=== PATIENT | male | born 1970 | race Caucasian/White ===

== ENCOUNTER 2016-06-03 08:26 | Outpatient (CLI) ==
[2016-06-03 08:56] LABS: ALBUMIN 3.3 g/dL (3.4-5.0); ALBUMIN/GLOBULIN RATIO 1.1; BILIRUBIN,TOTAL 0.61 mg/dL (0.00-1.20); BUN/CREATININE RATIO 11.71; CALCIUM 9.3 mg/dL (8.2-10.2); CREATININE 1.11 mg/dL (0.60-1.10); TOTAL PROTEIN 6.3 g/dL (6.4-8.2)
== END 2016-06-03 08:27 | disposition home or self-care (01) ==
LOC: LAB 08:26
PROVIDERS: ATTEND Emergency Medicine
DX: E11.9 Type 2 diabetes mellitus without complications (principal)
CPT/HCPCS: 36415; 80053; 80061; 83036

== ENCOUNTER 2016-08-26 09:02 | Outpatient (CLI) ==
[2016-08-26 09:22] LABS: BASOPHILS # (AUTO) 0.1 K/uL (0-0.2); BASOPHILS % (AUTO) 0.8 % (0.0-3.0); EOSINOPHILS # (AUTO) 0.2 K/ul (0.0-0.7); EOSINOPHILS % (AUTO) 3.1 % (0.0-7.0); HEMATOCRIT 43.9 % (42.0-52.0); HEMOGLOBIN 15.5 g/dl (14.0-18.0); IMMATURE GRANULOCYTE % (AUTO) 0.2 % (0.0-5.0); LYMPHOCYTES # (AUTO) 2.1 K/uL (0.60-3.4); LYMPHOCYTES % (AUTO) 31.5 (10.0-50.0); MEAN CORPUSCULAR HEMOGLOBIN 29.3 pg (27.0-31.0); MEAN CORPUSCULAR HGB CONC 35.3 (31.8-35.4); MONOCYTES # (AUTO) 0.7 K/uL (0.4-2.0); MONOCYTES % (AUTO) 10.1 (0-10); NEUTROPHILS # (AUTO) 3.6 K/ul (2.0-6.9); NEUTROPHILS % (AUTO) 54.3; PLATELET COUNT 196 10^3/uL (140-440); RED BLOOD COUNT 5.29 10^6/ul (4.70-6.10); WHITE BLOOD COUNT 6.53 K/ul (4.2-10.2)
[2016-08-26 09:59] LABS: ALBUMIN 3.6 g/dL (3.4-5.0); ALBUMIN/GLOBULIN RATIO 1.2; BILIRUBIN,TOTAL 0.79 mg/dL (0.00-1.20); BUN/CREATININE RATIO 14.15; CALCIUM 9.2 mg/dL (8.2-10.2); CHOL/HDL RATIO 5.3 (4.5-6.4); CREATININE 1.06 mg/dL (0.60-1.10); TOTAL PROTEIN 6.6 g/dL (6.4-8.2)
== END 2016-08-26 09:03 | disposition home or self-care (01) ==
LOC: LAB 09:02
PROVIDERS: ATTEND Emergency Medicine
DX: E78.5 Hyperlipidemia, unspecified (principal); I10 Essential (primary) hypertension; E88.81 Metabolic syndrome and other insulin resistance; E11.9 Type 2 diabetes mellitus without complications
CPT/HCPCS: 36415; 80053; 80061; 83036; 84443; 85025

== ENCOUNTER 2016-12-02 08:08 | Outpatient (CLI) ==
[2016-12-02 08:41] LABS: BASOPHILS # (AUTO) 0.1 K/uL (0-0.2); BASOPHILS % (AUTO) 0.8 % (0.0-3.0); EOSINOPHILS # (AUTO) 0.3 K/ul (0.0-0.7); EOSINOPHILS % (AUTO) 4.3 % (0.0-7.0); HEMATOCRIT 45.6 % (42.0-52.0); HEMOGLOBIN 16.1 g/dl (14.0-18.0); IMMATURE GRANULOCYTE % (AUTO) 0.5 % (0.0-5.0); LYMPHOCYTES # (AUTO) 2.5 K/uL (0.60-3.4); LYMPHOCYTES % (AUTO) 31.8 (10.0-50.0); MEAN CORPUSCULAR HGB CONC 35.3 (31.8-35.4); MONOCYTES # (AUTO) 0.6 K/uL (0.4-2.0); MONOCYTES % (AUTO) 7.2 (0-10); NEUTROPHILS # (AUTO) 4.3 K/ul (2.0-6.9); NEUTROPHILS % (AUTO) 55.4; PLATELET COUNT 208 10^3/uL (140-440); RED BLOOD COUNT 5.56 10^6/ul (4.70-6.10); WHITE BLOOD COUNT 7.83 K/ul (4.2-10.2)
[2016-12-02 09:18] LABS: ALBUMIN 3.5 g/dL (3.4-5.0); ANION GAP 15.7; BILIRUBIN,TOTAL 0.64 mg/dL (0.00-1.20); BUN/CREATININE RATIO 19.23; CALCIUM 9.2 mg/dL (8.2-10.2); CHOL/HDL RATIO 6.7 (4.5-6.4); CREATININE 1.04 mg/dL (0.60-1.10); POTASSIUM 3.7 mmol/L (3.5-5.1)
== END 2016-12-02 08:09 | disposition home or self-care (01) ==
LOC: LAB 08:08
PROVIDERS: ATTEND Emergency Medicine
DX: E88.81 Metabolic syndrome and other insulin resistance (principal); I10 Essential (primary) hypertension; E78.5 Hyperlipidemia, unspecified
CPT/HCPCS: 36415; 80053; 80061; 83036; 84443; 85025

== ENCOUNTER 2017-07-06 09:25 | Outpatient (CLI) | END 2017-07-06 09:26 | disposition home or self-care (01) | LOC: LAB 09:25 | PROVIDERS: ATTEND Emergency Medicine | DX: E78.5 Hyperlipidemia, unspecified (principal); I10 Essential (primary) hypertension; E88.81 Metabolic syndrome and other insulin resistance; E11.9 Type 2 diabetes mellitus without complications; E66.9 Obesity, unspecified | CPT/HCPCS: 36415; 80053; 80061; 83036; 84443; 85025 ==

== ENCOUNTER 2017-10-02 14:16 | Outpatient (CLI) | END 2017-10-02 14:17 | disposition home or self-care (01) | LOC: LAB 14:16 | PROVIDERS: ATTEND Emergency Medicine | DX: E11.9 Type 2 diabetes mellitus without complications (principal); E78.5 Hyperlipidemia, unspecified; I10 Essential (primary) hypertension; Z12.5 Encounter for screening for malignant neoplasm of prostate | CPT/HCPCS: 36415; 80053; 80061; 83036; 84443; 85025 ==

== ENCOUNTER 2017-12-03 13:45 | Outpatient (CLI) | END 2017-12-03 13:46 | disposition home or self-care (01) | LOC: LAB 13:45 | PROVIDERS: ATTEND Emergency Medicine | DX: E11.9 Type 2 diabetes mellitus without complications (principal); E78.5 Hyperlipidemia, unspecified; I10 Essential (primary) hypertension | CPT/HCPCS: 36415; 80053; 80061; 83036; 84443; 85025 ==

== ENCOUNTER 2018-03-09 12:11 | Outpatient (CLI) | END 2018-03-09 12:12 | disposition home or self-care (01) | LOC: LAB 12:11 | PROVIDERS: ATTEND Nurse Practitioner Family | DX: E11.9 Type 2 diabetes mellitus without complications (principal); I10 Essential (primary) hypertension; E78.5 Hyperlipidemia, unspecified | CPT/HCPCS: 36415; 80053; 80061; 83036 ==

== ENCOUNTER 2018-06-18 10:30 | Outpatient (CLI) | payer MEDICAID, OTHER | END 2018-06-18 10:31 | disposition home or self-care (01) | LOC: LAB 10:30 | PROVIDERS: ATTEND Nurse Practitioner Family | DX: E11.9 Type 2 diabetes mellitus without complications (principal); E78.5 Hyperlipidemia, unspecified | CPT/HCPCS: 36415; 80053; 80061; 83036 ==

== ENCOUNTER 2018-08-16 09:07 | Outpatient (CLI) | END 2018-08-16 09:08 | disposition home or self-care (01) | LOC: LAB 09:07 | PROVIDERS: ATTEND Nurse Practitioner Family | DX: E11.9 Type 2 diabetes mellitus without complications (principal); I10 Essential (primary) hypertension; E78.5 Hyperlipidemia, unspecified | CPT/HCPCS: 36415; 80053; 80061; 83036 ==

== ENCOUNTER 2018-09-15 14:05 | Outpatient (CLI) | END 2018-09-15 14:06 | disposition home or self-care (01) | LOC: LAB 14:05 | PROVIDERS: ATTEND Nurse Practitioner Family | DX: E11.9 Type 2 diabetes mellitus without complications (principal); E78.5 Hyperlipidemia, unspecified | CPT/HCPCS: 36415; 80053; 80061; 82043 ==

== ENCOUNTER 2018-09-16 10:19 | Outpatient (CLI) | END 2018-09-16 10:20 | disposition home or self-care (01) | LOC: RHC-LAB 10:19 | PROVIDERS: ATTEND Nurse Practitioner Family | DX: E11.9 Type 2 diabetes mellitus without complications (principal) ==

== ENCOUNTER 2019-01-14 10:21 | Outpatient (CLI) | END 2019-01-14 10:22 | disposition home or self-care (01) | LOC: LAB 10:21 | PROVIDERS: ATTEND Nurse Anesthetist, Certified Registered | DX: Z01.812 Encounter for preprocedural laboratory examination (principal) | CPT/HCPCS: 36415; 80053; 82248; 93005; 93010 ==

== ENCOUNTER 2020-04-04 10:45 | Observation (INO) ==
[2020-04-04] MEDS ORDERED: TRANDATE IVP STA ×2 (11:09→13:41)
--- NOTE | 2020-04-04 11:15 | ED.PDOC ---
General ED Provider: Dr. ZIA CHOWDHURY Chief Complaint: Hypertension Stated Complaint: Patient is a 49 year old male who has a history of hypertension and DM who comes to the ER with elevated blood pressure that was found while in his follow up appointment in the clinic. He states that he has been taking his medications for blood pressure. Denies any chest pain or headache. Time Seen by Physician: 11:00 Mode of Arrival: Walk-In Information Source: Patient Primary Care Provider: ODIN LONGORIA APRN, FNP-BC Nursing and Triage Documentation Reviewed and Agree: Yes Does patient meet sepsis criteria?: No System Inflammatory Response Syndrome: Not Applicable Sepsis Protocol: For patient's 13 years and over: Temp is 96.8 and below OR 101 and greater Pulse >90 BPM Resp >20/minute Acutely Altered Mental Status Are patient's symptoms suggestive of a new infection, such as: -Pneumonia -Skin, Soft Tissue -Endocarditis -UTI -Bone, Joint Infection -Implantable Device -Acute Abdominal Infection -Wound Infection -Meningitis -Blood Stream Catheter Infection -Unknown Review of Systems Review Of Systems Constitutional: Reports No symptoms Eyes: Reports No symptoms Ears, Nose, Mouth, Throat: Reports No symptoms Respiratory: Reports No symptoms Cardiac: Reports No symptoms GI: Reports No symptoms : Reports No symptoms Musculoskeletal: Reports No symptoms Skin: Reports No symptoms Neurological: Reports Anxiety Endocrine: Reports No symptoms Hematologic/Lymphatic: Reports No symptoms All Other Systems: Reviewed and Negative [facility] Medical History (Updated 04/04/20 @ 19:13 by ZIA CHOWDHURY MD) Anxiety and depression Callus of foot Carpal tunnel syndrome, left upper limb Diabetes mellitus Dyslipidemia Encounter for diabetic foot exam Feeling stressed out Homeless single person Hypertension Irritable mood Obesity Panic disorder Sleep apnea Uncontrolled hypertension Uncontrolled hypertension Family History Mother Cerebrovascular accident Hypertension FATHER Leukemia AUNT Multiple sclerosis MATERNAL GRANDMOTHER Cancer Other Chronic mental illness Social History Smoking and tobacco status: Never smoker Adopted: No Caregiver/support person: No Foster care: No Household members: children Housing: house Lives independently: Yes Current occupational status: unemployed Current occupational exposures/hazards: No Sexually active: Yes Do you think of yourself as: straight/heterosexual Current gender identity: male Seatbelt use: always Helmet use: No Drives intoxicated or rides with intoxicated auto crane driver: No Water heater temperature set < 120 degrees: Yes Working smoke detector in home: Yes Fire extinguisher in home: Yes Carbon monoxide detector in home: Yes Firearms in home: No Surgical History (Updated 05/22/19 @ 14:52 by [employer] [place]) Craniotomy (06/21/12) Physical Exam Physical Exam Appearance: Reports Obese Ill-appearing: None Pain Distress: None Eyes: Reports Conjunctiva clear Respiratory: Reports Airway patent, Breath sounds clear, Breath sounds equal and Respirations nonlabored Cardiovascular: Reports RRR, Pulses normal, No rub and No murmur Musculoskeletal: Reports Normal strength, ROM intact, No edema and No calf tenderness Skin: Reports Warm, Dry and Normal color Neurological: Reports Motor intact, Cranial nerves intact, Alert and Oriented Psychiatric: Reports Anxious Interpretation Radiology Interpretation Radiology Interpretation By: Radiologist Radiology Results: No acute changes Exam Interpreted: CT Scan (Head ) EKG Interpretation Time of EKG #1: 17:36 Rate: Normal Rhythm: Sinus Ectopy: None [place]: NL ST Segment: Normal Interpretation: Sinus with first degree av block Re-Evaluation Re-Evaluation Time of Re-Evaluation: 19:15 Status: Improved Vital Signs Stable: Yes (Blood pressure 203/93) Physician Notification Case Discussed Physician Notified: Dr bailey. Time of Notification: 19:12 (ok to admit ) Critical Care Note Critical Care Note Total Critical Care Time (mins): 55 Course Course Hematology/Chemistry: 04/04/20 17:32 04/04/20 17:32 Orders, Labs, Meds: Lab Review 04/04/20 04/04/20 04/04/20 17:32 17:32 17:35 WBC 10.05 RBC 4.76 Hgb 14.3 Hct 40.0 L MCV 84.0 MCH 30.0 MCHC 35.8 H RDW Coeff of Alan 14.2 Plt Count 195 Immature Gran % (Auto) 0.4 Neut % (Auto) 74.9 Lymph % (Auto) 15.4 [place] % (Auto) 6.7 Eos % (Auto) 2.1 Baso % (Auto) 0.5 Neut # (Auto) 7.5 H Lymph # (Auto) 1.6 [place] # (Auto) 0.7 Eos # (Auto) 0.2 Baso # (Auto) 0.1 Immature Gran # (Auto) 0.0 Sodium 136.6 Potassium 3.87 Chloride 100.0 Carbon Dioxide 27.4 Anion Gap 13.07 BUN 13.2 Creatinine 1.25 H Estimated GFR (MDRD) 61.00 BUN/Creatinine Ratio 10.56 Glucose 234.0 H Calcium 9.69 Total Bilirubin 0.87 AST 32.8 ALT 14.9 Alkaline Phosphatase 89.7 NT-Pro-B Natriuret Pep 783.000 H Total Protein 7.59 Albumin 4.31 Globulin 3.28 Albumin/Globulin Ratio 1.31 TSH Free T4 Urine Opiates Screen Positive H Ur Oxycodone Screen Negative Urine Methadone Screen Negative Ur Propoxyphene Screen Negative Ur Barbiturates Screen Negative U Tricyclic Antidepress Negative Ur Phencyclidine Scrn Negative Ur Amphetamine Screen Negative U Methamphetamines Scrn Negative U Benzodiazepines Scrn Negative Urine Cocaine Screen Negative U Cannabinoids Screen Negative 04/04/20 04/04/20 17:50 17:50 WBC RBC Hgb Hct MCV MCH MCHC RDW Coeff of Alan Plt Count Immature Gran % (Auto) Neut % (Auto) Lymph % (Auto) [place] % (Auto) Eos % (Auto) Baso % (Auto) Neut # (Auto) Lymph # (Auto) [place] # (Auto) Eos # (Auto) Baso # (Auto) Immature Gran # (Auto) Sodium Potassium Chloride Carbon Dioxide Anion Gap BUN Creatinine Estimated GFR (MDRD) BUN/Creatinine Ratio Glucose Calcium Total Bilirubin AST ALT Alkaline Phosphatase NT-Pro-B Natriuret Pep Total Protein Albumin Globulin Albumin/Globulin Ratio TSH 1.280 Free T4 1.48 Urine Opiates Screen Ur Oxycodone Screen Urine Methadone Screen Ur Propoxyphene Screen Ur Barbiturates Screen U Tricyclic Antidepress Ur Phencyclidine Scrn Ur Amphetamine Screen U Methamphetamines Scrn U Benzodiazepines Scrn Urine Cocaine Screen U Cannabinoids Screen Orders Category Date Time Status EKG-(ED ONLY) Stat CARDIO 04/04/20 17:27 Completed ED IV/MEDIPORT/POWERPORT .ONCE EMERGENCY 04/04/20 11:09 Active CBC W/ AUTO DIFF Stat LAB 04/04/20 17:32 Completed COMPREHENSIVE METABOLIC PANEL Stat LAB 04/04/20 17:32 Completed CORTISOL,RANDOM Stat LAB 04/04/20 18:20 Received DRUG SCREEN, URINE, RAPID Stat LAB 04/04/20 17:35 Completed FREE T4 (FREE THYROXINE) Stat LAB 04/04/20 17:50 Completed METANEPHRINES, FRAC PL, FREE Stat LAB 04/04/20 18:20 Received NT-PROBNP Stat LAB 04/04/20 17:32 Completed THYROID STIMULATING HORMONE Stat LAB 04/04/20 17:50 Completed 0.9 % Sodium Chloride [Saline Flush] MEDS 04/04/20 11:09 Active 1 syr IVF PRN PRN Clonidine HCl [Catapres] MEDS 04/04/20 17:33 Discontinued 0.1 mg PO ONCE STA Enalaprilat Dihydrate [Vasotec IV] MEDS 04/04/20 12:27 Discontinued 1.25 mg IVP ONCE STA Hydralazine HCl MEDS 04/04/20 14:57 Discontinued 10 mg IVP ONCE STA Labetalol HCl [Trandate] MEDS 04/04/20 13:41 Discontinued 10 mg IVP ONCE STA Labetalol HCl [Trandate] MEDS 04/04/20 11:09 Discontinued 20 mg IVP ONCE STA Lorazepam Inj [Ativan] MEDS 04/04/20 15:04 Discontinued 1 mg IVP ONCE STA Nicardipine in NaCl, Iso-Osm [Cardene 20 mg/200 ml NaCl MEDS 04/04/20 16:30 Active ] 20 mg in [address] HEAD W/O CONTRAST Stat RADS 04/04/20 17:32 Completed Medications Generic Name Dose Route Start Last Admin Trade Name Freq PRN Reason Stop Dose Admin Nicardipine/Sodium Chloride 20 mg in 200 mls @ 50 mls/hr 04/04/20 16:30 04/04/20 17:53 Cardene 20 Mg/200 Ml Nacl IV 0 mg/hr TITRATE MARY ANN 0 mls/hr Titration Protocol 5 MG/HR Sodium Chloride 1 syr 04/04/20 11:09 0.9% Sodium Chloride 10 Ml Disp.Syrin IVF PRN PRN To flush IV Discontinued Medications Generic Name Dose Route Start Last Admin Trade Name Freq PRN Reason Stop Dose Admin Clonidine 0.1 mg 04/04/20 17:33 04/04/20 17:57 Clonidine Hcl 0.1 Mg Tablet PO 04/04/20 17:34 0.1 mg ONCE STA Administration Enalaprilat 1.25 mg 04/04/20 12:27 04/04/20 12:44 Enalaprilat Dihydrate 1.25 Mg/Ml Vial IVP 04/04/20 12:28 1.25 mg ONCE STA Administration Hydralazine HCl 10 mg 04/04/20 14:57 04/04/20 15:19 Hydralazine Hcl 20 Mg/Ml Sdv IVP 04/04/20 14:58 10 mg ONCE STA Administration Labetalol HCl 20 mg 04/04/20 11:09 04/04/20 11:17 Labetalol Hcl 100 Mg/20 Ml Mdv IVP 04/04/20 11:10 20 mg ONCE STA Administration Labetalol HCl 10 mg 04/04/20 13:41 04/04/20 13:57 Labetalol Hcl 100 Mg/20 Ml Mdv IVP 04/04/20 13:42 10 mg ONCE STA Administration Lorazepam 1 mg 04/04/20 15:04 04/04/20 15:25 Lorazepam Inj 2 Mg/Ml Disp.Syringe IVP 04/04/20 15:05 1 mg ONCE STA Administration Vital Signs: Temp Pulse Resp BP Pulse Ox 04/04/20 16:11 218/106 H 04/04/20 14:23 186/94 H 04/04/20 14:22 175/96 H 04/04/20 13:52 186/88 H 04/04/20 13:32 182/94 H 04/04/20 13:19 187/95 H 04/04/20 13:07 188/94 H 04/04/20 12:47 209/99 H 04/04/20 12:43 190/102 H 04/04/20 12:17 199/96 H 04/04/20 12:03 200/98 H 04/04/20 11:47 201/99 H 04/04/20 11:35 223/111 H 04/04/20 11:22 227/108 H 04/04/20 11:13 255/119 H 04/04/20 11:00 240/130 H 04/04/20 10:46 97.5 F L 74 18 239/122 H 98 Discharge Plan Discharge Patient Disposition: PLACED OBSERVATION Discharge Problem: Hypertensive urgency Hypertension Qualifiers: Hypertension type: essential hypertension Qualified Code(s): I10 - Essential (primary) hypertension ED Provider: ZIA CHOWDHURY Condition: Fair Physician Progress Note: []
[2020-04-04] MEDS ORDERED: VASOTEC IV IVP STA (12:27)
[2020-04-04] MEDS ORDERED: HYDRALAZINE HCL IVP STA (14:57)
[2020-04-04] MEDS ORDERED: ATIVAN IVP STA (15:04)
[2020-04-04] MEDS ORDERED: CARDENE 20 MG/200 ML NACL 20 MG/200 ML BAG IV SCH (16:30)
[2020-04-04] MEDS ORDERED: CATAPRES PO STA (17:33)
[2020-04-04 17:39] LABS: BASOPHILS # (AUTO) 0.1 K/uL (0-0.2); BASOPHILS % (AUTO) 0.5 % (0.0-3.0); EOSINOPHILS # (AUTO) 0.2 K/ul (0.0-0.7); EOSINOPHILS % (AUTO) 2.1 % (0.0-7.0); HEMOGLOBIN 14.3 g/dl (14.0-18.0); IMMATURE GRANULOCYTE % (AUTO) 0.4 % (0.0-5.0); LYMPHOCYTES # (AUTO) 1.6 K/uL (0.60-3.4); LYMPHOCYTES % (AUTO) 15.4 (10.0-50.0); MEAN CORPUSCULAR HGB CONC 35.8 (31.8-35.4); MONOCYTES # (AUTO) 0.7 K/uL (0.4-2.0); MONOCYTES % (AUTO) 6.7 (0-10); NEUTROPHILS # (AUTO) 7.5 K/ul (2.0-6.9); NEUTROPHILS % (AUTO) 74.9 % (42.2-75.2); PLATELET COUNT 195 10^3/uL (140-440); RDW COEFFICIENT OF VARIATION 14.2 % (11.6-14.8); RED BLOOD COUNT 4.76 10^6/ul (4.70-6.10); WHITE BLOOD COUNT 10.05 K/ul (4.2-10.2)
[2020-04-04 17:51] LABS: ALANINE AMINOTRANSFERASE 14.9 U/L (0-50); ALBUMIN 4.31 g/dL (3.5-5.0); ALKALINE PHOSPHATASE 89.7 U/L (38-126); ASPARTATE AMINO TRANSFERASE 32.8 U/L (17-59); BILIRUBIN,TOTAL 0.87 mg/dL (0.2-1.3); BLOOD UREA NITROGEN 13.2 mg/dL (9-20); CALCIUM 9.69 mg/dL (8.4-10.2); CARBON DIOXIDE 27.4 mmol/L (22-30.0); CREATININE 1.25 mg/dL (0.60-1.10); POTASSIUM 3.87 mmol/L (3.5-5.1); SODIUM 136.6 mmol/L (134.5-145); TOTAL PROTEIN 7.59 g/dL (6.3-8.2)
[2020-04-04 18:05] LABS: OPIATE SCREEN,URINE POSITIVE (NEGATIVE)
[2020-04-04 18:06] LABS: AMPHETAMINE SCREEN,URINE NEGATIVE (NEGATIVE); BARBITURATE SCREEN,URINE NEGATIVE (NEGATIVE); BENZODIAZEPINES SCREEN,URINE NEGATIVE (NEGATIVE); CANNABINOID SCREEN,URINE NEGATIVE (NEGATIVE); COCAIN SCREEN,URINE NEGATIVE (NEGATIVE); METHADONE URINE SCREEN NEGATIVE (NEGATIVE); METHAMPHETAMINES SCREEN,URINE NEGATIVE (NEGATIVE); OXYCODONE URINE SCREEN NEGATIVE (NEGATIVE); PHENCYCLIDINE SCREEN,URINE NEGATIVE (NEGATIVE); PROPOXYPHENE URINE SCREEN NEGATIVE (NEGATIVE); TRICYCLIC ANTIDEPRESSANTS URIN NEGATIVE (NEGATIVE)
--- NOTE | 2020-04-04 18:16 | CT ---
EXAM: CT Head HISTORY: Headache COMPARISON: 06/16/2012 TECHNIQUE: CT head performed without contrast FINDINGS: There is no mass effect, midline shift, or intracranial hemmorhage. Carver white differenti ation is preserved. There is no extra-axial collection. Old right frontal lobe coronal radiata and centrum semiovale infarcts with encephalomalacia are involved since 06/16/2012. Patchy periventricul ar and subcortical white matter hypodensities. Mild generalized cerebral atrophy. The ventricles and sulci are unremarkable. The basal cisterns are patent. There is no depressed calvarial fracture. T he mastoid air cells are clear. The visualized paranasal sinuses are clear. IMPRESSION: 1. No acute intracranial abnormality. 2. 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 3. Mild chronic small vessel ischemic changes and atrophy.
[2020-04-04] MEDS ORDERED: ZOFRAN 4 MG/2 ML IVP PRN (19:15)
[2020-04-04] MEDS ORDERED: TYLENOL PO PRN (19:15)
[2020-04-04 20:44] VITALS: BMI 36.5
--- NOTE | 2020-04-04 20:49 | PCM ---
Chief Complaint Chief Complaint: My Blood pressure is elevated, the clinic sent me to the emergency room. HTN Urgency History of Present Illness History of Present Illness: 49 yo CM patient of ADRIAN Sierra presented to ED today after visit was scheduled with [facility] Rodriguez. [facility], bu tappt was cancelled at 10:12. Per patient, he was directed to the ED due markedly elevated BP. At 1730 today, Dr. Harris from ED called me to let me know that the patient BP was markedly elevated. While on the phone, I checked his last OV from 01/04/20 DM f/u, BG noted 160-200, 3 week previously met with cardiology w/ med changes and had apt 1 week in the future. I did not find scanned documents from the cardiology evaluation. Homeless, living out of the truck. Last A1C 11.10, poor diet, living in vehicle, uncontrolled HTN: recommended salt reduction. Labs were ordered. Labs from 04/02/20 WBC 7.53, hgb 14.1, plt 228. CMP 138.5 sodium, k+ 3.83, cr 1.29, glucose 158.3, a1c 9.34. Trigly 294.1, chol 204.7, ldl 114. AST/ALT normal at 21.9 and 14.6. Stress echo 04/01/[address] Glaser. I was called by ED 1739 04/04/20 and informed patient was in ED with high blood pressure. I talked to Steven. Patient arrived in ED around 11. They noted chronic history of HTN and DM found while in f/u apt in clinic. Had been taking BP meds. No Chest pain, no PACKER. BP from 10:46 through present included 239/122, 240/130, 255/119, 227/108, 223/111, 201/99, 200/98 199/96, 190/102, 209/99, 188/94, 187/95, 182/94, 186/88, 175/96, 186/94 and then 218/106. Afebrile, Pulse 74, rr 18. I reviewed medications from the last note from ADRIAN sierra and med list is not clear. It appears he is on Lovastatin 40mg daily, Lisinopril 40mg daily, hydroxyzine 25mg up to QID, Clonidine patch 0.3/24 hour, metoprolol tartrate 100 daily, norco 10 TID, HCTZ 25, basaglar 64 untis, lispro 20 units TID. Is on chlorthalidone 50mg daily. He should not be on #2 thiazides. I reviewed the note from podiatry from 02/16/20 papoes and peripheral neuropathy. It appears in the ED he got lorazepam 1mg, labetaol 20mg IVP at 1109, then 10mg at 1341. He got enalaprilat 1.25mg 1227, hydralazine 10mg at 1457. Then clonidine 0.1mg at 1733 at my direction as I was concerned that the patient was having rebound HTN due to missing his clonidine patch. As of the discussion with me at 1738, no labs had been done on patient today. I requested CBC/CMP/Utox at a minimum. No eye c/o no vision changes, no PACKER, no Chest pain, no urinary changes, no MSK changes. He presented with HTN urgency without obvious emergency/end organ symptoms. I discussed with ED provider that labs for today would be a good idea. I would like to know the creatinine today to evaluate kidney function. ER provider noted that he was given hydralazine, labetalol, these did not help. He was added on nicardipine drip and BP had dropped some. I noted concern for stimulation of the sympathetic nervous system and for rebound HTN due to lack of clonidine. He has not had any renal imaging in our system, I do not have the recent cardiology recommendations. He is not on aldosterone antagonist. Based on presentation, I am concerned that the patient has not been compliant with his clonidine. I would like to give him 0.2mg clonidine BID, would like to start Norvasc 10mg daily, continue chlorthalidone 50mg, Lisinopril 40mg. Would like to get Renal artery US and kidney US tomorrow. I need to get cardiology documentation. I noted to Dr. Harris that I needed additional information about this patient before agreeing to admit as no workup had been done other than meds for his high BP. Received call back at 1905 after request for additional information and I agreed to admit to observation. CBC showed wbc 10.05, hgb 14.3, plt 195. CMP Cr stable at 1.25, GFR 61 suggesting stage 2 disease. K+ is stable at 3.87 and sodium 136.6. BUN stable 13.2. Glucose 234.0. A1C done 04/02 was 9.34. BNP was 783. TSH normal 1.280, Free T4 1.48. microalbumin was 211 on 10/05/19. Utox was + for opiates. 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 Mild chornic small vessel ischemic changes. Called nursing and his BP was 205/100 right and 220/120 on left as of 21:20. Reviewed care with Carl woods. The patient is by definition resistant HTN as he is on multiple meds (>3) with persistent HTN. Some patients have refractory HTN (>5 meds with chlorhtalidone and aldactone) under care of HTN specialist. No proximal muscle weakness, purple striae, cushingoid features, large hands/feet, virilization, frontal bossing (e/o GH or Cortisol). Initial w/u needs to include electrolytes, UA, calcium, tsh, plasma jacob and plasma renin activity, plasma fractionated metanephrines. I had DR. Harris order most of this while in the ED. I have added renin activity, aldosterone. Metanephrines, urine microalb/creatinine ratio. US kidneys in am and am and doppler in am. CXR in am. REVIEW OF SYMPTOMS: (Positives bolded) General: weight loss, fever, chills, night sweats, fatigue, appetite loss HEENT: blurry vision, eye pain, eye discharge, dry eyes, decreased vision, sore throat tinnitus, bloody nose, hearin gloss, sinus pain/pressure, ear pain/pressure. Respiratory: shortness of breath, cough, hemoptysis, wheezing, pleurisy, Cardiovascular: chest pain, PND, palpitation, edema, orthopnea, syncope, swelling of extremities Gastro: Nausea, vomiting, diarrhea, hematemesis, abdominal pain, constipation Genito: hematuria, dysuria, glycosuria, hesitancy, frequency, incontinence Musckelo: Arthralgia, myalgia, muscle weakness, joint swelling, NSAID use Skin: rash, pruritis, sores, nail changes, skin thickening, change in wart/mole, itching, rash, new lesions, pruritus, nail changes Neuro: Migraine, numbness, ataxia, tremor, vertigo, weakness, memory loss, Irritability, dizziness Endocrine: excessive thirst, polyuria, cold intolerance, heat intolerance, goiter Psychiatric: depression, anxiety, anti-depressants, alcohol abuse, drug abuse, insomnia, change in sleep pattern and mood changes Heme/lymph: easy bruising, bleeding gums, blood clots, swollen glands, lymphedema, Allergic/immune: allergic rhinitis, hay fever, asthma, hives Vital Signs - 24 hr 04/04/20 10:46 04/04/20 11:00 04/04/20 11:13 Temperature 97.5 F L Pulse Rate 74 Respiratory Rate 18 Blood Pressure 239/122 H 240/130 H 255/119 H O2 Sat by Pulse Oximetry 98 04/04/20 11:22 04/04/20 11:35 04/04/20 11:47 Temperature Pulse Rate Respiratory Rate Blood Pressure 227/108 H 223/111 H 201/99 H O2 Sat by Pulse Oximetry 04/04/20 12:03 04/04/20 12:17 04/04/20 12:43 Temperature Pulse Rate Respiratory Rate Blood Pressure 200/98 H 199/96 H 190/102 H O2 Sat by Pulse Oximetry 04/04/20 12:47 04/04/20 13:07 04/04/20 13:19 Temperature Pulse Rate Respiratory Rate Blood Pressure 209/99 H 188/94 H 187/95 H O2 Sat by Pulse Oximetry 04/04/20 13:32 04/04/20 13:52 04/04/20 14:22 Temperature Pulse Rate Respiratory Rate Blood Pressure 182/94 H 186/88 H 175/96 H O2 Sat by Pulse Oximetry 04/04/20 14:23 04/04/20 16:11 04/04/20 20:21 Temperature 97.8 F Pulse Rate 93 H Respiratory Rate 20 Blood Pressure 186/94 H 218/106 H O2 Sat by Pulse Oximetry 97 04/04/20 20:49 04/04/20 21:32 Temperature 97.8 F 97.8 F Pulse Rate 93 H 93 H Respiratory Rate 20 20 Blood Pressure 218/106 H 205/106 H O2 Sat by Pulse Oximetry 97 97 Constitutional: Appearance-No acute distress, Consistent with stated age. Orientation- Oriented x 3, alert Build and Nutrition-[obese male] General- Patient is pleasant and cooperative with the interview and exam. Integumentary: General-No rashes, ulcers or lesions. Palpation- Normal skin moisture/turgor. Skin is warm to touch, appropriate. Capillary refill is normal bilateral Upper and lower extremity. Head/Neck: Head- normocephalic and atraumatic. Neck- without visible/palpable lumps or pulsations. Palpation- No bony tenderness about head/neck along frontal, occipital, temporal, parietal, mastoid, jawline, zygoma, orbit or any other location. NO temporal artery tenderness. No TMJ tenderness. Neck Supple. Thyroid-No thyromegaly, no nodules Eye: Bilaterally PERRLA, EOMI. No discharge. Upper and lower eyelids are normal. Sclera/conjunctiva normal without discharge. Cornea is normal and clear. Lens is normal. Eyeball appears normal. No ciliary flushing, no conjunctival injection. No e/o disc changes that I could detect with ophthalmoscope. No e/o Papilledema. ENMT: Pinna- normal without tenderness or erythema. External auditory canal Left- normal without erythema or discharge, no excessive cerumen. External auditory canal Right-normal without erythema or discharge, no excessive cerumen. TM left- Carver/pearly, normal light reflex and anatomy TM Right- Carver/pearly, normal light reflex and anatomy Hearing Assessment-normal to conversational speech. Nose and sinus- No sinus tenderness along frontal/maxillary region. External appearance normal and midline. Nares- bilateral quiet airflow, no discharge. Nasal mucosa- No bleeding noted and no ulcerations observed. [place], moist. Turbinates non boggy. Lips- normal color, moist without cracks/lesions Oral Cavity/Palate- hard/soft palate intact without lesions, oral mucosa pink and moist. Tongue normal midline. Oropharynx- no pharyngeal erythema, Uvula midline. No post nasal drip. No exudate. Salivary glands- Non tender to palpation CHEST/LUNG: Inspection- symmetric chest wall no pectus deformity. Normal effort, no distress, no use of accessory muscles. Palpation- nontender sternum, ribline. No abnormal pulsations. Auscultation- Breath sounds normal throughout all lung gunter. Normal tracheal sounds, Normal bronchial sounds overlying sternum, Bronchovessicular sounds normal between scapulae posteriorly, Normal vessicular breath sounds heard throughout periphery. Lungs are clear today. Adventitious sounds- No wheezes, rales, rhonchi. CARDIOVASCULAR: Carotid artery- normal, no bruits or abnormal pulsations. Jugular vein- no pulsations. Palpation/Percussion- Normal PMI, no palpable thrill Auscultation- Regular rate and rhythm. No murmur noted in sitting, supine positions. Extremities- no digital clubbing, cyanosis, edema, increased warmth. No bruits in carotids. ABDOMEN: Inspection- normal and no visible pulsations. Normal contour. Auscultation- Bowel sounds normal, no abdominal bruits. Palpation/Percussion- soft, non-tender, no rebound tenderness, no rigidity (guarding), no jar tenderness, no masses. Liver-no hepatomegaly, Spleen no splenomegaly, Hernias- none. Rectal not examined. Peripheral Vascular: Upper extremity Left- Normal temperature with pink nailbeds and no ulcerations. Upper extremity Right- Normal temperature with pink nailbeds and no ulcerations. Lower extremity- Normal temperature with pink nailbeds and no ulcerations. DP pulses 2+ bilaterally. Pedal hair intact. Normal capillary refill. Edema- No edema. Musculoskeletal: Generalized-No generalized swelling or edema of extremities, no digital clubbing or cyanosis, neurovascularly intact all four extremities. Upper extremity- Symmetrical posture. No visible deformity. Normal sensation along medial and lateral upper extremity proximally and distally. NO tenderness overlying shoulder, lateral/medial epicondyle. [employer] Driver 5/5 and strength 5/5 bi lateral UE. Elbow palpated, no tenderness overlying olecranon. Normal supination, pronation to active/passive ROM and to resisted rotation. Bicep insertion/tricep insertion appear normal without obvious pathology. Rotator cuff evaluated and intact. Normal wrist ROM bilaterally. Normal hand movement, intrinsic muscles of hands normal. No tenderness to palpation of hands/wrists/elbows. Lower extremity- Hip: Not tender to palpation, no pain, no swelling, edema or erythema of surrounding tissue, normal strength and tone. Normal appearing hip ROM bilaterally without pain. Knee: Knee ROM normal. No tenderness overlying trochanters, no tenderness about patella, quad tendon, patellar tendon. No tenderness at tibial tuberosity. Ankle: normal ROM not tender to palpation along medial/lateral malleolus. Foot: Normal movement of toes, no tenderness bilateral feet/toes. Normal foot type. Spine/Ribs- No deformities, masses or tenderness, no known fractures, normal strength, Normal ROM. Normal stability No tenderness along C/T/L spine. Normal appearing ROM about spine. Neurological: General- Moves all 4 extremities symmetrically. Symmetrical face and body posture. Cranial nerves- individually evaluated II-XII and intact. PERRLA, Normal EOMI, visual/special senses appear intact, Face is symmetrical and normal sensation/movement, normal tongue, normal strength/posture of neck musculature. Reflexes- intact with DTR 2+ patellar, Achilles, bicep, brachial, tricep. Ankle clonus normal with 2 beats. Strength- 5/5 bilateral UE and LE. Soft touch- intact bilateral UE and LE. Temperature sensation- intact bilateral UE and LE. Cerebellar testing-Rapid alternating movements intact. Heel ernandez intact. Able to walk normal gait, normal heel toe walking. Balance- Romberg intact. Normal Walking, heel toe walking, tip toe and heel walking normal. Neuropsych: Oriented- Person, place, time. (AAOx3), Mood/affect- normal and congruent. Able to articulate well. Speech-Normal speech, normal rate, normal tone, normal use of language, volume and coherence. Thought content- normal with ability to perform basic computations and apply abstract thought/reason. Associations- intact, no SI/HI, no hallucinations, delusions, obsessions. Judgment/insight- Appropriate. Memory-Recall intact, remote and recent memory intact. Knowledge- Age appropriate fund of knowledge, concentration and attention span normal. Lymphatic: Head/Neck- normal size and non tender to palpation. Axillary- normal size and non tender to palpation. Femoral and Inguinal- normal size and non tender to palpation. Allergies Allergies Allergy/AdvReac Type Severity Reaction Status Date / Time atorvastatin calcium AdvReac Mild stomach Verified 04/04/20 10:05 [From Lipitor] [facility] Medical History (Updated 04/04/20 @ 22:39 by LAYLA GABRIEL MD) Anxiety and depression Callus of foot Carpal tunnel syndrome, left upper limb Diabetes mellitus Dyslipidemia Encounter for diabetic foot exam Feeling stressed out Homeless single person Hypertension Irritable mood Obesity Panic disorder Sleep apnea Uncontrolled hypertension Uncontrolled hypertension Surgical History (Updated 05/22/19 @ 14:52 by [employer] [place]) Craniotomy (06/21/12) Family History Mother Cerebrovascular accident Hypertension FATHER Leukemia AUNT Multiple sclerosis MATERNAL GRANDMOTHER Cancer Other Chronic mental illness Social History Smoking and tobacco status: Never smoker Adopted: No Caregiver/support person: No Foster care: No Household members: children Housing: house Lives independently: Yes Current occupational status: unemployed Current occupational exposures/hazards: No Sexually active: Yes Do you think of yourself as: straight/heterosexual Current gender identity: male Seatbelt use: always Helmet use: No Drives intoxicated or rides with intoxicated driver/merchandiser: No Water heater temperature set < 120 degrees: Yes Working smoke detector in home: Yes Fire extinguisher in home: Yes Carbon monoxide detector in home: Yes Firearms in home: No Medications Medications: Medications Generic Name Dose Route Start Last Admin Trade Name Freq PRN Reason Stop Dose Admin Acetaminophen 650 mg 04/04/20 19:15 Acetaminophen 325 Mg Tablet PO Q4H PRN mild pain Hydrocodone Bitart/Acetaminophen 1 tab 04/04/20 21:00 Hydrocodone Bit/Acetaminophen 10/325 Mg Tablet PO TID MARY ANN Hydroxyzine HCl 25 mg 04/04/20 21:00 Hydroxyzine Hcl 25 Mg Tablet PO QID MARY ANN Nicardipine/Sodium Chloride 20 mg in 200 mls @ 50 mls/hr 04/04/20 16:30 04/04/20 17:53 Cardene 20 Mg/200 Ml Nacl IV 0 mg/hr TITRATE MARY ANN 0 mls/hr Titration Protocol 5 MG/HR Insulin Glargine 64 unit 04/04/20 21:00 Insulin Glargine,Hum.Rec.Anlog 100 Units/Ml SUBCUT BID MARY ANN Insulin Human Lispro 20 unit 04/04/20 21:00 Insulin Lispro 100 Unit/Ml (3 Ml) Vial SUBCUT TID MARY ANN Lisinopril 40 mg 04/05/20 09:00 Lisinopril 40 Mg Tablet PO DAILY MARY ANN Lovastatin 40 mg 04/05/20 09:00 Lovastatin 20 Mg Tablet PO DAILY MARY ANN Metoprolol Succinate 100 mg 04/05/20 09:00 Metoprolol Succinate 50 Mg Tab.Er.24h PO DAILY MARY ANN Ondansetron HCl 4 mg 04/04/20 19:15 Ondansetron Hcl/Pf 4 Mg/2 Ml Sdv IVP Q6H PRN nausea or vomiting Sodium Chloride 1 syr 04/04/20 11:09 0.9% Sodium Chloride 10 Ml Disp.Syrin IVF PRN PRN To flush IV Body Composition Height: 5 ft 10 in Weight: 254 lb 9 oz Body Mass Index (BMI): 36.5 Vital Signs Temperature: 97.8 F Pulse Rate: 93 Respiratory Rate: 20 Blood Pressure: 218/106 O2 Sat by Pulse Oximetry: 97 Lab/Tests/Diagnostic Imaging Lab/Tests/Diagnostic Imaging: Lab Review 04/04/20 04/04/20 04/04/20 17:32 17:32 17:35 WBC 10.05 RBC 4.76 Hgb 14.3 Hct 40.0 L MCV 84.0 MCH 30.0 MCHC 35.8 H RDW Coeff of Alan 14.2 Plt Count 195 Immature Gran % (Auto) 0.4 Neut % (Auto) 74.9 Lymph % (Auto) 15.4 Pope % (Auto) 6.7 Eos % (Auto) 2.1 Baso % (Auto) 0.5 Neut # (Auto) 7.5 H Lymph # (Auto) 1.6 Pope # (Auto) 0.7 Eos # (Auto) 0.2 Baso # (Auto) 0.1 Immature Gran # (Auto) 0.0 Sodium 136.6 Potassium 3.87 Chloride 100.0 Carbon Dioxide 27.4 Anion Gap 13.07 BUN 13.2 Creatinine 1.25 H Estimated GFR (MDRD) 61.00 BUN/Creatinine Ratio 10.56 Glucose 234.0 H Calcium 9.69 Total Bilirubin 0.87 AST 32.8 ALT 14.9 Alkaline Phosphatase 89.7 NT-Pro-B Natriuret Pep 783.000 H Total Protein 7.59 Albumin 4.31 Globulin 3.28 Albumin/Globulin Ratio 1.31 TSH Free T4 Urine Opiates Screen Positive H Ur Oxycodone Screen Negative Urine Methadone Screen Negative Ur Propoxyphene Screen Negative Ur Barbiturates Screen Negative U Tricyclic Antidepress Negative Ur Phencyclidine Scrn Negative Ur Amphetamine Screen Negative U Methamphetamines Scrn Negative U Benzodiazepines Scrn Negative Urine Cocaine Screen Negative U Cannabinoids Screen Negative 04/04/20 04/04/20 17:50 17:50 WBC RBC Hgb Hct MCV MCH MCHC RDW Coeff of Alan Plt Count Immature Gran % (Auto) Neut % (Auto) Lymph % (Auto) Pope % (Auto) Eos % (Auto) Baso % (Auto) Neut # (Auto) Lymph # (Auto) Pope # (Auto) Eos # (Auto) Baso # (Auto) Immature Gran # (Auto) Sodium Potassium Chloride Carbon Dioxide Anion Gap BUN Creatinine Estimated GFR (MDRD) BUN/Creatinine Ratio Glucose Calcium Total Bilirubin AST ALT Alkaline Phosphatase NT-Pro-B Natriuret Pep Total Protein Albumin Globulin Albumin/Globulin Ratio TSH 1.280 Free T4 1.48 Urine Opiates Screen Ur Oxycodone Screen Urine Methadone Screen Ur Propoxyphene Screen Ur Barbiturates Screen U Tricyclic Antidepress Ur Phencyclidine Scrn Ur Amphetamine Screen U Methamphetamines Scrn U Benzodiazepines Scrn Urine Cocaine Screen U Cannabinoids Screen CT HEAD: IMPRESSION: 1. No acute intracranial abnormality. 2. 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 3. Mild chronic small vessel ischemic changes and atrophy. EKG: NSR 1st degree AV block just under 100BPM. axis is normal. Normal R wave progression. QTC is prolonged at 480. No Acute ST/T changes. Orders Category Date Time Status EKG-(ED ONLY) Stat CARDIO 04/04/20 17:27 Completed BLOOD GLUCOSE MONITORING 0630,1100,1700,2100 CARE 04/04/20 19:23 Active INTAKE & OUTPUT Q8HR CARE 04/04/20 19:15 Completed VITAL SIGNS Q4HR CARE 04/04/20 19:16 Completed VTE PREVENTION .JOE 24 Hours CARE 04/04/20 19:15 Active 2 GRAM SODIUM DIET DIETARY 04/04/20 Breakfast Ordered ED IV/MEDIPORT/POWERPORT .ONCE EMERGENCY 04/04/20 11:09 Active BASIC METABOLIC PANEL DAILY@0600 LAB 04/05/20 06:00 Ordered BASIC METABOLIC PANEL DAILY@0600 LAB 04/06/20 06:00 Ordered CBC W/ AUTO DIFF DAILY@0600 LAB 04/05/20 06:00 Ordered CBC W/ AUTO DIFF DAILY@0600 LAB 04/06/20 06:00 Ordered CBC W/ AUTO DIFF Stat LAB 04/04/20 17:32 Completed COMPREHENSIVE METABOLIC PANEL Stat LAB 04/04/20 17:32 Completed CORTISOL,RANDOM Stat LAB 04/04/20 18:20 Received DRUG SCREEN, URINE, RAPID Stat LAB 04/04/20 17:35 Completed FREE T4 (FREE THYROXINE) Stat LAB 04/04/20 17:50 Completed METANEPHRINES, FRAC PL, FREE Stat LAB 04/04/20 18:20 Received NT-PROBNP Stat LAB 04/04/20 17:32 Completed THYROID STIMULATING HORMONE Stat LAB 04/04/20 17:50 Completed 0.9 % Sodium Chloride [Saline Flush] MEDS 04/04/20 11:09 Active 1 syr IVF PRN PRN Acetaminophen [Tylenol] MEDS 04/04/20 19:15 Active 650 mg PO Q4H PRN Clonidine HCl [Catapres] MEDS 04/04/20 17:33 Discontinued 0.1 mg PO ONCE STA Enalaprilat Dihydrate [Vasotec IV] MEDS 04/04/20 12:27 Discontinued 1.25 mg IVP ONCE STA Hydralazine HCl MEDS 04/04/20 14:57 Discontinued 10 mg IVP ONCE STA Hydrocodone Bit/Acetaminophen [Diana 10-325] MEDS 04/04/20 21:00 Active 1 tab PO TID Hydroxyzine HCl [Atarax] MEDS 04/04/20 21:00 Active 25 mg PO QID Insulin Glargine,Hum.rec.anlog [Lantus] MEDS 04/04/20 21:00 Active 64 unit SUBCUT BID Insulin Lispro [Humalog] MEDS 04/04/20 21:00 Active 20 unit SUBCUT TID Labetalol HCl [Trandate] MEDS 04/04/20 13:41 Discontinued 10 mg IVP ONCE STA Labetalol HCl [Trandate] MEDS 04/04/20 11:09 Discontinued 20 mg IVP ONCE STA Lisinopril [Zestril] MEDS 04/05/20 09:00 Active 40 mg PO DAILY Lorazepam Inj [Ativan] MEDS 04/04/20 15:04 Discontinued 1 mg IVP ONCE STA Lovastatin [Mevacor] MEDS 04/05/20 09:00 Active 40 mg PO DAILY Metoprolol Succinate [Toprol Xl] MEDS 04/05/20 09:00 Active 100 mg PO DAILY Nicardipine in NaCl, Iso-Osm [Cardene 20 mg/200 ml NaCl MEDS 04/04/20 16:30 Active ] 20 mg in 200 ml IV TITRATE Ondansetron HCl/Pf [Zofran 4 mg/2 ml] MEDS 04/04/20 19:15 Active 4 mg IVP Q6H PRN RESUSCITATION STATUS Routine OTHERS 04/04/20 19:[address] HEAD W/O CONTRAST Stat RADS 04/04/20 17:32 Completed Medications Generic Name Dose Route Start Last Admin Trade Name Freq PRN Reason Stop Dose Admin Acetaminophen 650 mg 04/04/20 19:15 Acetaminophen 325 Mg Tablet PO Q4H PRN mild pain Hydrocodone Bitart/Acetaminophen 1 tab 04/04/20 21:00 Hydrocodone Bit/Acetaminophen 10/325 Mg Tablet PO TID MARY ANN Hydroxyzine HCl 25 mg 04/04/20 21:00 Hydroxyzine Hcl 25 Mg Tablet PO QID MARY ANN Nicardipine/Sodium Chloride 20 mg in 200 mls @ 50 mls/hr 04/04/20 16:30 04/04/20 17:53 Cardene 20 Mg/200 Ml Nacl IV 0 mg/hr TITRATE MARY ANN 0 mls/hr Titration Protocol 5 MG/HR Insulin Glargine 64 unit 04/04/20 21:00 Insulin Glargine,Hum.Rec.Anlog 100 Units/Ml SUBCUT BID [facility] Insulin Human Lispro 20 unit 04/04/20 21:00 Insulin Lispro 100 Unit/Ml (3 Ml) Vial SUBCUT TID [facility] Lisinopril 40 mg 04/05/20 09:00 Lisinopril 40 Mg Tablet PO DAILY [facility] Lovastatin 40 mg 04/05/20 09:00 Lovastatin 20 Mg Tablet PO DAILY [facility] Metoprolol Succinate 100 mg 04/05/20 09:00 Metoprolol Succinate 50 Mg Tab.Er.24h PO DAILY [facility] Ondansetron HCl 4 mg 04/04/20 19:15 Ondansetron Hcl/Pf 4 Mg/2 Ml Sdv IVP Q6H PRN nausea or vomiting Sodium Chloride 1 syr 04/04/20 11:09 0.9% Sodium Chloride 10 Ml Disp.Syrin IVF PRN PRN To flush IV Discontinued Medications Generic Name Dose Route Start Last Admin Trade Name Freq PRN Reason Stop Dose Admin Clonidine 0.1 mg 04/04/20 17:33 04/04/20 17:57 Clonidine Hcl 0.1 Mg Tablet PO 04/04/20 17:34 0.1 mg ONCE STA Administration Enalaprilat 1.25 mg 04/04/20 12:27 04/04/20 12:44 Enalaprilat Dihydrate 1.25 Mg/Ml Vial IVP 04/04/20 12:28 1.25 mg ONCE STA Administration Hydralazine HCl 10 mg 04/04/20 14:57 04/04/20 15:19 Hydralazine Hcl 20 Mg/Ml Sdv IVP 04/04/20 14:58 10 mg ONCE STA Administration Labetalol HCl 20 mg 04/04/20 11:09 04/04/20 11:17 Labetalol Hcl 100 Mg/20 Ml Mdv IVP 04/04/20 11:10 20 mg ONCE STA Administration Labetalol HCl 10 mg 04/04/20 13:41 04/04/20 13:57 Labetalol Hcl 100 Mg/20 Ml Mdv IVP 04/04/20 13:42 10 mg ONCE STA Administration Lorazepam 1 mg 04/04/20 15:04 04/04/20 15:25 Lorazepam Inj 2 Mg/Ml Disp.Syringe IVP 04/04/20 15:05 1 mg ONCE STA Administration Assessment (1) Hypertensive urgency: Status: Acute Code(s): I16.0 - Hypertensive urgency SNOMED Code(s): 225934559 (2) Homeless single person: Status: Acute Code(s): Z59.0 - Homelessness SNOMED Code(s): 944663740 (3) Anxiety and depression: Status: Acute Code(s): F41.9 - Anxiety disorder, unspecified; F32.9 - Major depressive disorder, single episode, unspecified SNOMED Code(s): 683544228 (4) Diabetes mellitus, insulin dependent (IDDM), uncontrolled: Status: Acute SNOMED Code(s): 23808401 (5) Mixed hyperlipidemia: Status: Acute Code(s): E78.2 - Mixed hyperlipidemia SNOMED Code(s): 085213384 (6) BMI 36.0-36.9,adult: Status: Acute Code(s): Z68.36 - Body mass index [BMI] 36.0-36.9, adult SNOMED Code(s): 596432211 Plan Plan: HTN Urgency: Discussed >180 SBP or >120 DBP without e/o end organ damage supports dx of HTN urgency. Discussed differences between HTN urgency and emergency. Also discussed medications as first line with JNC 8. Guidelines support goal of BP to be <140/90 for patient. He has had longstanding resistant HTN. He has been on lisinopril 40mg daily, it appears chlorthalidone 50mg, clonidine 0.3mg/24hour patch, metoprolol 100mg succinate. We discussed testing for renin/jacob levels, reviewed ED notes for CBC/CMP. He has no palpitations, no diaphoresis or tremor. I have requested jacob/renin levels. Ideally they are done in the am. We may have to repeat this test as an outpatient. BP should be reduced over hours to days in this patient. Goal <160/100. 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 it appears that his mother has had similar problem. Oral clonidine will replace the patch and we will use 0.2mg BID. We will continue his joaquin-i, BB. I will add norvasc 10mg, I will add spironolactone 25mg daily. R/B/A to meds d/w patient, SE reviewed, handout offered regarding medications listed. I will check CBC/CMP in am. Will await the cortisol ordered by ED. Will await remainder of labs. I have ordered imaging of kidneys. He has severe asymptomatic and likely resistant HTN. I will monitor his BP overnight and consider changing/adding hydralazine in the am if aldactone and norvasc have not helped. Normally with primary hyperaldo, his K+ should be low. One factor that decreases this chance is that his last readings K+ is normal. We discussed pheo as a possibility. JUANCARLOS is a possibility. Monitor for PACKER, chest pain, visual changes. We will monitor electrolytes and monitor symptoms. Plan D/C in next 24-48 hours. Discussed compliance at length tonight. He was not on long acting CCB, he was on Joaquin-I, was on thiazide. As noted in history. We discussed symptoms and he has none. Labs TSH NL, Electrolytes NL, Will get UA in am. Denied opiate withdrawal. Denied clonidine withdrawal. Lifestyle modification d/w patient. Reduced sodium intake. Exercise. Eval for Outpatient KAYLIE. Goal is to give longer acting agents. Was on hctz, but we will use chlorthalidone, a more potent diuretic. Electrolytes look okay. - Admit obs w/ tele - REviewed ED note/Reviewed medications used in the ED. - Start Norvasc 10mg dailiy - Start aldactone 25 mg. - Renin/jacob activity - q 4 hour accucheck - CBC/CMP in am. - Outpatient sleep study. - Call if >220 SBP or >120 DBP. DIabetes: Chronic Diabetes. We have reviewed medications. Discussed need for p neumovax q 5 years x 2 and then again discussed Prevnar at 63 yr old. We reviewed current status of nephropathy, Retinopathy, Neuropathy. Foot health reviewed and recommended foot evaluation with each OV as outpatient. Discussed need to f/u with optometry/ ophthalmology annually and to eval for DM nephropathy. We discussed current meds, reviewed A1C. Discussed typical goals for patient based on age/medical problems/Accord trial data and recent ACP recommendations. Discussed Hyper/hypoglycemia. Reviewed s/sx of each. Discussed ASA, discussed joaquin-I/ARB, discussed statins. Goal BP for DM <140/90. Moderate to High potency statin d/w patient based on ACC/AHA. Good foot health discussed, appropriate shoes encouraged. Monitor blood sugars as encouraged and bring log to future meetings. Weight control discussed with patient. Goal 1 BMI <30. Goal 2 BMI 19-24.9. Work on regular exercise and diet to keep BMI in appropriate range with initial goal <30. Most recent labs reviewed with patient: New labs ordered as appropriate. (see orders) - Increase lantus to 66 units BID - Stop humalog 20 TID and use Sliding scale. Anxiety/Depression: Chronic established problem. Current Status UNSTABLE. We reviewed current therapy for this problem and discussed R/B/A to continued care/cessation of therapy. Chronic anxiety, chronic worsening of symptoms. However, he feels today he is feeling fine and that he is not anxious. Will continue to monitor. - Continue home med Hydroxyzine 25mg QID> Mixed HLD: Chronic problem. Patient is on lovastatin 40mg, which is inadequate. He needs to be on lipitor 40mg (allergy) OR CRESTOR 20MG TO 40MG. Based on current guidelines the patient has a [27.7% risk of heart attack/cardiac event over the next 10 years. Recent studies suggest that when values are greater than 7.5% clinicians should consider/discuss statin therapy with the patient as a way to reduce risks of heart attack and potentially stroke. Other potential improvements can be made by smoking cessation, healthy weight loss, regular exercise/activity, blood pressure management and cholesterol management as these are modifiable risk factors. Lifestyle changes- Dietary reduction in total calories encouraged. Healthier choices included baked instead of fried foods, more green leafy vegetables, fruits, whole grain carbohydrates, fish, nuts. Try to avoid eating out/fast food, walking minimum daily 15 minutes at a pace difficult to carry a conversation. Regular physical activity can then be escalated as able. If chest pain stop exercise plan and f/u with office. Consider meeting with debrander/educator. Consider utilizing known diets like DASH plan and the AHA DM diet. - Needs High Potency statin: High potency statin include lipitor (atorvastatin) 40-80mg (ALLEGY) vs crestor (Rosuvastatin) 20-40mg. - Will d/c patient with Crestor 20mg. BMI 36.5: Federal guidelines recommend that people under the age of 65 should have a BMI of 18.5 -24.9 and people age 65 and older should have a BMI of 23-30. Morbid obesity is defined as >100 lb overweight or BMI >40. The patient BMI is outside the recommended range and we recommended/discussed today to utilize a diet/exercise program to get back into the appropriate range. Today we encouraged roughly a 1 lb per week weight loss with initial goal of 5% weight loss. The initial step is to document everything that is consumed into a food diary. Studies have shown that patients can lose up to 2x the weight by keeping track of foods. We discussed BEE today and discussed reasonable goal to realize weight loss. Discussed if eating out for a meal, consider cutting food in half and placing into to-go container. Individually portion any foods coming into the home based on package. Consider using smaller plates. Portion plates reviewed and discussed with patient. Consider drinking 12 oz of water 30 minutes before meal as way to suppress appetite. Cut back on soft drinks/juices. Discussed 1 can of regular soft drink has roughly 150-170 Calories per day. Increase exercise as able. It is recommended to try to exercise minimum 10 minutes 5 days per week. The goal over the next 2-4 weeks is to walk 30 minutes per day 5 days per week at pace difficult to hold conversation. Medications that may provide some benefit to weight loss include metformin, topamax, phentermine, Qsymia,Belviq (lorcaserin), Contrave (Buproprion/naltrexone) and a few others for Binge eating. Also discussed some of the FAD diets and recommended general portion reduction instead of special dietary changes. Reviewed several of the diabetic medications that have secondary bendfits of weight loss. Apps that may be of benefit include MyfitDialog[employer] Pal, Lose it. Healthier choices included fruits/grains/nuts instead of processed food. Offered referral to debrander and bariatrics. Dvt Prophy: Lovenox 40mg subcutanteous Activity: Ad altagracia. Disposition: HTN urgency/Resistant HTN/Severe HTN w/o secondary s/sx of end organ damage. Will work on getting BP down overnight. Will see patient back in am. Plan discharge in next 24-48 hours. >70 minutes spent on admission today. Call w/ update in am or sooner overnight if remaining >200 SBP, new symptoms, or worsening.
[2020-04-04] MEDS ORDERED: HUMALOG SUBCUT SCH (21:00)
[2020-04-04] MEDS ORDERED: LANTUS SUBCUT SCH (21:00)
[2020-04-04] MEDS ORDERED: HUMALOG SUBCUT STA (22:00)
[2020-04-04] MEDS: NORCO 10-325 PO SCH (22:13)
[2020-04-04] MEDS: ATARAX PO SCH (22:13)
[2020-04-04] MEDS: ALDACTONE PO SCH (22:13)
[2020-04-04] MEDS: NORVASC PO SCH (22:13)
[2020-04-04] MEDS: LOVENOX SUBCUT SCH (23:03)
[2020-04-05 05:24] LABS: BASOPHILS % (AUTO) 0.5 % (0.0-3.0); EOSINOPHILS # (AUTO) 0.3 K/ul (0.0-0.7); EOSINOPHILS % (AUTO) 3.3 % (0.0-7.0); HEMATOCRIT 40.3 % (42.0-52.0); HEMOGLOBIN 13.9 g/dl (14.0-18.0); IMMATURE GRANULOCYTE % (AUTO) 0.2 % (0.0-5.0); LYMPHOCYTES # (AUTO) 2.6 K/uL (0.60-3.4); LYMPHOCYTES % (AUTO) 30.2 (10.0-50.0); MEAN CORPUSCULAR HEMOGLOBIN 29.2 pg (27.0-31.0); MEAN CORPUSCULAR HGB CONC 34.5 (31.8-35.4); MEAN CORPUSCULAR VOLUME 84.7 fl (80.0-94.0); MONOCYTES # (AUTO) 0.7 K/uL (0.4-2.0); MONOCYTES % (AUTO) 8.4 (0-10); NEUTROPHILS % (AUTO) 57.4 % (42.2-75.2); PLATELET COUNT 205 10^3/uL (140-440); RDW COEFFICIENT OF VARIATION 14.4 % (11.6-14.8); RED BLOOD COUNT 4.76 10^6/ul (4.70-6.10); WHITE BLOOD COUNT 8.71 K/ul (4.2-10.2)
[2020-04-05 05:38] LABS: ALBUMIN 3.98 g/dL (3.5-5.0); ALKALINE PHOSPHATASE 69.9 U/L (38-126); ASPARTATE AMINO TRANSFERASE 26.8 U/L (17-59); BILIRUBIN,TOTAL 0.97 mg/dL (0.2-1.3); BLOOD UREA NITROGEN 13.9 mg/dL (9-20); CALCIUM 9.63 mg/dL (8.4-10.2); CARBON DIOXIDE 28.9 mmol/L (22-30.0); CHLORIDE 102.1 mmol/L (98-107); CREATININE 1.2 mg/dL (0.60-1.10); GLUCOSE 109.8 mg/dL (74-106); POTASSIUM 3.53 mmol/L (3.5-5.1); SODIUM 137.7 mmol/L (134.5-145); TOTAL PROTEIN 7.09 g/dL (6.3-8.2)
--- NOTE | 2020-04-05 06:56 | PCM.PROG ---
Subjective: 49 yr old CM history of chronic resistant HTN, IDDM, HLD, homelessness, anxiety, BMI 36.5, hospital day 2 with admission for hypertension urgency/resistant HTN. The patient was changed from clonidine 0.3mg/24hr patch to 0.2mg clonidine PO BID, Lisinopril 40mg daily QHS, Norvasc 10mg, Chlorthalidone 50mg, metoprolol succinate 100mg, and spironolactone 25mg daily. R/B/A to medications were discussed with patient, SE were discussed with patient last night. He had no symptoms. Overnight he has had 3 voids. No BM. BP were 218/106 at 16:11 and 20:49. 205/106 at 21:32. 187/94 at 23:41 when I left last night, 153/89 this am at 0200 and 157/86 at 0549. HR 72 and 71 at 0200 and 0549. His BP mean has dropped from 139 to 109. This is a <25% drop, which is reasonable for an hours to days approach to BP lowering. RR stable at 16-18 this am max of 20. Remains afebrile. O2 97-100 on RA. Telemetry overnight NSR with 1st degree AVB noted as seen on EKG. No bundle block noted, no fascicle block noted. Labs this am CBC: normal white count 8.71, hgb 13.9 and essentially normal. Plt normal at 205. CMP Creatinne has dropped from 1.25 to 1.20. Sodium normal 137.7, K+ normal 3.53, cl nnormal 102.1, Glucose looked great at 109.8. Send out labs are not yet back. As noted, I suspected some withdrawal from either a BB or Clonidine as cause for his rebound markedly elevated BP. Nursing notes reviewed. Rested well through night. Was given lovenox. He had #2 new BP meds added by me as noted above Norvasc 10 (risks of peripheral edema d/w patient) and aldactone (risks of hypotension/gynecomastia specifically mentioned in addition to others). He is currently NPO for his am US of kidneys and renal artery US. CXR is pending this am as well. I have increased his basaglar (lantus in hospital) to 66 units BID from 64 units. I have stopped the 20units of Humalog TID and changed him to q 4 hours accucheck and moderate dose sliding scale. He is not on metformin. He is not on other oral glucose lowering medications. Patient feels unchanged this am. As per nursing obs narratives. He rested well, felt fine and had no c/o. Slept well through the night. He still has no c/o this am. Awaiting imaging. I would like to monitor him through this evening. If his BP remains stable, will plan on d/c either this pm or tomorrow 04/06/20 am. Rounds started 06:45-07:15. Patient seen room 115. D/W overnight nurses, reviewed tele, reviewed labs, awaited imaging. REVIEW OF SYMPTOMS: (Positives bolded) General: weight loss, fever, chills, night sweats, fatigue, appetite loss HEENT: blurry vision, eye pain, eye discharge, dry eyes, decreased vision, sore throat tinnitus, bloody nose, hearin gloss, sinus pain/pressure, ear pain/pressure. Respiratory: shortness of breath, cough, hemoptysis, wheezing, pleurisy, Cardiovascular: chest pain, PND, palpitation, edema, orthopnea, syncope, swelling of extremities Gastro: Nausea, vomiting, diarrhea, hematemesis, abdominal pain, constipation Genito: hematuria, dysuria, glycosuria, hesitancy, frequency, incontinence Musckelo: Arthralgia, myalgia, muscle weakness, joint swelling, NSAID use Skin: rash, pruritis, sores, nail changes, skin thickening, change in wart/mole, itching, rash, new lesions, pruritus, nail changes Neuro: Migraine, numbness, ataxia, tremor, vertigo, weakness, memory loss, Irritability, dizziness Endocrine: excessive thirst, polyuria, cold intolerance, heat intolerance, goiter Psychiatric: depression, anxiety, anti-depressants, alcohol abuse, drug abuse, insomnia, change in sleep pattern and mood changes Heme/lymph: easy bruising, bleeding gums, blood clots, swollen glands, lymphedema, Allergic/immune: allergic rhinitis, hay fever, asthma, hives Objective: Vital Signs 04/04/20 23:41 04/05/20 02:00 04/05/20 05:49 Temperature 98.0 F Pulse Rate 72 71 Respiratory Rate 18 16 Blood Pressure 187/94 H 153/89 H 157/86 H O2 Sat by Pulse Oximetry 99 100 Constitutional: Appearance-No acute distress, Consistent with stated age. Orientation- Oriented x 3, alert Build and Nutrition-[obese bmi 36.4] General- Patient is pleasant and cooperative with the interview and exam. Integumentary: General-No rashes, ulcers or lesions. Palpation- Normal skin moisture/turgor. Skin is warm to touch, appropriate. Capillary refill is normal bilateral Upper and lower extremity. Head/Neck: Head- normocephalic and atraumatic. Neck- without visible/palpable lumps or pulsations. Palpation- No bony tenderness about head/neck along frontal, occipital, temporal, parietal, mastoid, jawline, zygoma, orbit or any other location. NO temporal artery tenderness. No TMJ tenderness. Neck Supple. Thyroid-No thyromegaly, no nodules Eye: Bilaterally PERRLA, EOMI. No discharge. Upper and lower eyelids are normal. Sclera/conjunctiva normal without discharge. Cornea is normal and clear. Lens is normal. Eyeball appears normal. No ciliary flushing, no conjunctival injection. ENMT: Nose and sinus- No sinus tenderness along frontal/maxillary region. External appearance normal and midline. Nares- bilateral quiet airflow, no discharge. Nasal mucosa- No bleeding noted and no ulcerations observed. Jette, moist. Turbinates non boggy. Lips- normal color, moist without cracks/lesions Oral Cavity/Palate- hard/soft palate intact without lesions, oral mucosa pink and moist. Tongue normal midline. Oropharynx- no pharyngeal erythema, Uvula midline. No post nasal drip. No exudate. Salivary glands- Non tender to palpation CHEST/LUNG: Inspection- symmetric chest wall no pectus deformity. Normal effort, no distress, no use of accessory muscles. Palpation- nontender sternum, ribline. No abnormal pulsations. Auscultation- Breath sounds normal throughout all lung gunter. Normal tracheal sounds, Normal bronchial sounds overlying sternum, Bronchovessicular sounds normal between scapulae posteriorly, Normal vessicular breath sounds heard throughout periphery. Lungs are clear today. Adventitious sounds- No wheezes, rales, rhonchi. CARDIOVASCULAR: Carotid artery- normal, no bruits or abnormal pulsations. Jugular vein- no pulsations. Palpation/Percussion- Normal PMI, no palpable thrill Auscultation- Regular rate and rhythm. No murmur noted in sitting, supine positions. Extremities- no digital clubbing, cyanosis, edema, increased warmth. ABDOMEN: Inspection- normal and no visible pulsations. Normal contour. Auscultation- Bowel sounds normal, no abdominal bruits. Palpation/Percussion- soft, non-tender, no rebound tenderness, no rigidity (guarding), no jar tenderness, no masses. Liver-no hepatomegaly, Spleen no splenomegaly, Hernias- none. Rectal not examined. Peripheral Vascular: Upper extremity Left- Normal temperature with pink nailbeds and no ulcerations. Upper extremity Right- Normal temperature with pink na ilbeds and no ulcerations. Lower extremity- Normal temperature with pink nailbeds and no ulcerations. DP pulses 2+ bilaterally. Pedal hair intact. Normal capillary refill. Edema- No edema. Musculoskeletal: Generalized-No generalized swelling or edema of extremities, no digital clubbing or cyanosis, neurovascularly intact all four extremities. Neurological: General- Moves all 4 extremities symmetrically. Symmetrical face and body posture. Cranial nerves- individually evaluated II-XII and intact. PERRLA, Normal EOMI, visual/special senses appear intact, Face is symmetrical and normal sensation/movement, normal tongue, normal strength/posture of neck musculature. Reflexes- intact with DTR 2+ patellar, Achilles, Neuropsych: Oriented- Person, place, time. (AAOx3), Mood/affect- normal and congruent. Able to articulate well. Speech-Normal speech, normal rate, normal tone, normal use of language, volume and coherence. Thought content- normal with ability to perform basic computations and apply abstract thought/reason. Associations- intact, no SI/HI, no hallucinations, delusions, obsessions. Judgment/insight- Appropriate. Memory-Recall intact, remote and recent memory intact. Knowledge- Age appropriate fund of knowledge, concentration and attention span normal. Lymphatic: Head/Neck- normal size and non tender to palpation. Axillary- normal size and non tender to palpation. Femoral and Inguinal- normal size and non tender to palpation. Laboratory Results - last 24 hr 04/04/20 04/04/20 04/04/20 17:32 17:32 17:35 WBC 10.05 RBC 4.76 Hgb 14.3 Hct 40.0 L MCV 84.0 MCH 30.0 MCHC 35.8 H RDW Coeff of Alan 14.2 Plt Count 195 Immature Gran % (Auto) 0.4 Neut % (Auto) 74.9 Lymph % (Auto) 15.4 Granite % (Auto) 6.7 Eos % (Auto) 2.1 Baso % (Auto) 0.5 Neut # (Auto) 7.5 H Lymph # (Auto) 1.6 Granite # (Auto) 0.7 Eos # (Auto) 0.2 Baso # (Auto) 0.1 Immature Gran # (Auto) 0.0 Sodium 136.6 Potassium 3.87 Chloride 100.0 Carbon Dioxide 27.4 Anion Gap 13.07 BUN 13.2 Creatinine 1.25 H Estimated GFR (MDRD) 61.00 BUN/Creatinine Ratio 10.56 Glucose 234.0 H Calcium 9.69 Total Bilirubin 0.87 AST 32.8 ALT 14.9 Alkaline Phosphatase 89.7 NT-Pro-B Natriuret Pep 783.000 H Total Protein 7.59 Albumin 4.31 Globulin 3.28 Albumin/Globulin Ratio 1.31 TSH Free T4 Urine Opiates Screen Positive H Ur Oxycodone Screen Negative Urine Methadone Screen Negative Ur Propoxyphene Screen Negative Ur Barbiturates Screen Negative U Tricyclic Antidepress Negative Ur Phencyclidine Scrn Negative Ur Amphetamine Screen Negative U Methamphetamines Scrn Negative U Benzodiazepines Scrn Negative Urine Cocaine Screen Negative U Cannabinoids Screen Negative 04/04/20 04/04/20 04/05/20 17:50 17:50 05:16 WBC RBC Hgb Hct MCV MCH MCHC RDW Coeff of Alan Plt Count Immature Gran % (Auto) Neut % (Auto) Lymph % (Auto) Granite % (Auto) Eos % (Auto) Baso % (Auto) Neut # (Auto) Lymph # (Auto) Granite # (Auto) Eos # (Auto) Baso # (Auto) Immature Gran # (Auto) Sodium 137.7 Potassium 3.53 Chloride 102.1 Carbon Dioxide 28.9 Anion Gap 10.23 BUN 13.9 Creatinine 1.20 H Estimated GFR (MDRD) 64.00 BUN/Creatinine Ratio 11.58 Glucose 109.8 H D Calcium 9.63 Total Bilirubin 0.97 AST 26.8 ALT 13.0 Alkaline Phosphatase 69.9 NT-Pro-B Natriuret Pep Total Protein 7.09 Albumin 3.98 Globulin 3.11 Albumin/Globulin Ratio 1.27 TSH 1.280 Free T4 1.48 Urine Opiates Screen Ur Oxycodone Screen Urine Methadone Screen Ur Propoxyphene Screen Ur Barbiturates Screen U Tricyclic Antidepress Ur Phencyclidine Scrn Ur Amphetamine Screen U Methamphetamines Scrn U Benzodiazepines Scrn Urine Cocaine Screen U Cannabinoids Screen 04/05/20 05:16 WBC 8.71 RBC 4.76 Hgb 13.9 L Hct 40.3 L MCV 84.7 MCH 29.2 MCHC 34.5 RDW Coeff of Alan 14.4 Plt Count 205 Immature Gran % (Auto) 0.2 Neut % (Auto) 57.4 Lymph % (Auto) 30.2 Granite % (Auto) 8.4 Eos % (Auto) 3.3 Baso % (Auto) 0.5 Neut # (Auto) 5.0 Lymph # (Auto) 2.6 Granite # (Auto) 0.7 Eos # (Auto) 0.3 Baso # (Auto) 0.0 Immature Gran # (Auto) 0.0 Sodium Potassium Chloride Carbon Dioxide Anion Gap BUN Creatinine Estimated GFR (MDRD) BUN/Creatinine Ratio Glucose Calcium Total Bilirubin AST ALT Alkaline Phosphatase NT-Pro-B Natriuret Pep Total Protein Albumin Globulin Albumin/Globulin Ratio TSH Free T4 Urine Opiates Screen Ur Oxycodone Screen Urine Methadone Screen Ur Propoxyphene Screen Ur Barbiturates Screen U Tricyclic Antidepress Ur Phencyclidine Scrn Ur Amphetamine Screen U Methamphetamines Scrn U Benzodiazepines Scrn Urine Cocaine Screen U Cannabinoids Screen PENDING STUDIES OF 0700 04/05/20 CXR: Pending Renal Artery US/DOPPLER: PENDING Kidney US: PENDING Renin/jacob activity: Pending Cortisol: PENDING Urinalysis: Pending Urine microalb/cr: PENDING Fractionated Metanephrines: PENDING (1) Hypertensive urgency: Status: Acute Code(s): I16.0 - Hypertensive urgency SNOMED Code(s): 741417873 (2) Homeless single person: Status: Acute Code(s): Z59.0 - Homelessness SNOMED Code(s): 335211562 (3) Anxiety and depression: Status: Acute Code(s): F41.9 - Anxiety disorder, unspecified; F32.9 - Major depressive disorder, single episode, unspecified SNOMED Code(s): 502852014 (4) Diabetes mellitus, insulin dependent (IDDM), uncontrolled: Status: Acute SNOMED Code(s): 64697207 (5) Mixed hyperlipidemia: Status: Acute Code(s): E78.2 - Mixed hyperlipidemia SNOMED Code(s): 927300000 (6) BMI 36.0-36.9,adult: Status: Acute Code(s): Z68.36 - Body mass index [BMI] 36.0-36.9, adult SNOMED Code(s): 095419050 Plan: 1. AWAIT remainder of labs: Metanephrines, renin/jacob levels, UA. 2. Await CXR 3. Await renal artery US and kidney US. 4. Monitor BP through the day. 5. Consider d/c home vs monitor overnight and d/c in am tomorrow. Please see discharge summary completd today 04/05/20.
[2020-04-05] MEDS ORDERED: ZESTRIL PO SCH (09:00)
[2020-04-05] MEDS ORDERED: TOPROL XL PO SCH (09:00)
[2020-04-05] MEDS ORDERED: LANTUS SUBCUT SCH (09:00)
[2020-04-05] MEDS ORDERED: CATAPRES PO SCH (09:00)
--- NOTE | 2020-04-05 11:10 | DI ---
EXAM: Chest two views HISTORY: Hypertension urgency COMPARISON: None TECHNIQUE: Two views of the chest were performed FINDINGS: The lungs are clear. There is no pleural effusion or pneumothorax. The heart is normal i n size. The mediastinal contour is normal. There are no acute abnormalities of the bones. IMPRESSION: No acute cardiopulmonary process.
--- NOTE | 2020-04-05 11:28 | US ---
EXAM: Renal ultrasound HISTORY: Uncontrolled hypertension COMPARISON: Renal Doppler same day TECHNIQUE: Sonographic evaluation of the kidneys was performed with limited Doppler evaluation. FINDINGS: The right kidney measures 11.6 x 5.4 x 4.2 cm with renal cortical thickness of 1.5 cm. Th ere is mild lobular appearance of the right kidney. There is normal echogenicity and color Doppler f low. No stone or hydronephrosis is identified. The left kidney measures 10.1 x 5.2 x 4.3 cm with renal cortical thickness of 1.1 cm. There is elena l echogenicity and color Doppler flow. No stone or hydronephrosis is identified. Limited evaluation of the urinary bladder is unremarkable. IMPRESSION: No sonographic abnormality of the kidneys
--- NOTE | 2020-04-05 11:50 | US ---
EXAM: Renal artery duplex HISTORY: Uncontrolled hypertension COMPARISON: Ultrasound same day TECHNIQUE: Sonographic and Doppler evaluation of the kidneys and renal arteries were performed. FINDINGS: The aorta is normal in appearance with peak systolic velocity of 11.6 cm per second and di ameter of 1.8 cm. The IVC is patent. The right kidney measures 11.6 cm in length. Peak systolic velocities measure 1.1 m/sec at the ostium, 1.0 m/sec in the mid artery and 1.0 m/sec i n the renal hilum. These are within normal limits. The renal artery/aortic ratio measures 1.0 at the ostium, 0.9 in the mid renal artery and 0.9 in the hilum. The arcuate artery demonstrates a peak systolic velocity of 0.2 m/sec and resistive index of 0.64 whi ch normal. The right renal vein is patent. The left kidney measures 10.1 cm in length. Peak systolic velocities measure 0.9 m/sec at the ostium, 0.8 m/sec in the mid renal artery and 0.8 m /sec in the renal hilum. These are normal. The renal artery/aortic ratio measures 0.8 at the ostium, 0.7 in the mid left renal artery and 0.7 in the renal hilum. The arcuate artery measures peak systolic velocity of 0.2 m/sec with a resistive index of 0.62 which is normal. The left renal vein is patent. Color Doppler wave spectral evaluation are unremarkable. IMPRESSION: 1. Resistive indices are within normal limits. 2. All velocities are within normal limits.
[2020-04-05] MEDS: ALDACTONE PO SCH (11:55)
[2020-04-05] MEDS: ATARAX PO SCH ×3 (11:55→17:19)
[2020-04-05] MEDS: NORVASC PO SCH (11:56)
[2020-04-05] MEDS: NORCO 10-325 PO SCH ×2 (11:58→16:36)
[2020-04-05] MEDS: LOVENOX SUBCUT SCH (11:58)
[2020-04-05 14:42] VITALS: BP 176/92; TEMP 98.8
[2020-04-05] MEDS ORDERED: MEVACOR PO SCH (17:00)
--- NOTE | 2020-04-05 17:46 | PCM.DC ---
Final Diagnosis: 1. Resistant HTN 2. IDDM Poorly controlled 3. BMI 36 4. Homeless status 5. Anxiety/Depression 6. Mixed HLD (1) Hypertensive urgency: Status: Acute Code(s): I16.0 - Hypertensive urgency SNOMED Code(s): 211268299 (2) Homeless single person: Status: Acute Code(s): Z59.0 - Homelessness SNOMED Code(s): 392626466 (3) Anxiety and depression: Status: Acute Code(s): F41.9 - Anxiety disorder, unspecified; F32.9 - Major depressive disorder, single episode, unspecified SNOMED Code(s): 179291579 (4) Diabetes mellitus, insulin dependent (IDDM), uncontrolled: Status: Acute SNOMED Code(s): 01432780 (5) Mixed hyperlipidemia: Status: Acute Code(s): E78.2 - Mixed hyperlipidemia SNOMED Code(s): 903336679 (6) BMI 36.0-36.9,adult: Status: Acute Code(s): Z68.36 - Body mass index [BMI] 36.0-36.9, adult SNOMED Code(s): 690557981 Reason for Hospitalization: Resistnat HTN/HTN Urgency - Renal Artery US negative - Kidney US WNL Prognosis at Discharge: Improved overall, prognosis uncertain. Would benefit from HTN specialist. . 1. Increase clonidine to 0.2mg TID Do not miss doses. 2. Add aldactone 25 mg daily. R/B/A to meds d/w patient, SE reviewed, handout offered regarding medications listed. 3. Continue metoprolol succinate 100mg daily 4. Continue Chlorthalidone 50mg daily 5. Add Norvasc 10mg daily. R/B/A to meds d/w patient, SE reviewed, handout offered regarding medications listed. 6. Continue lisinopril 40mg. 7. Next step add hydralazine. F/U with cardiology 04/09 8. F/u with CERTIFIED HYPERBARIC TECHNICIAN Crumble on 04/11 1pm. Condition at Discharge: Stable to improved. Medications at Discharge: Ambulatory Orders Medication Instructions Recorded hydrocodone-acetaminophen [[place]] 1 ea PO TID 11/23/13 blood-glucose meter #1 ea 02/10/18 lancing device with lancets #50 lancets 02/10/18 [OneTouch Delica Lanc Device] blood sugar diagnostic #100 each 04/25/19 hydroxyzine HCl 10 mg tablet 25 mg PO QID 06/28/19 pen needle, diabetic 31 gauge x See Rx Instructions .ROUTE 08/09/1910/07" .COMPLEX #100 each insulin lispro 100 unit/mL 20 unit SUBCUT TID 30 Days #18 ml 01/04/20 subcutaneous solution lisinopril 40 mg tablet 40 mg PO QDAY 01/04/20 metoprolol succinate 100 mg 100 mg PO QDAY 01/04/20 tablet,extended release 24 hr blood sugar diagnostic See Rx Instructions .ROUTE 02/20/20 .COMPLEX #100 ea insulin syringe-needle U-100 1 mL #100 each 03/19/20 28 gauge Basaglar KwikPen U-100 Insulin 66 unit SUBCUT BID #15 ml 04/05/20 amlodipine 10 mg PO DAILY #30 tab 04/05/20 clonidine HCl 0.2 mg PO TID #90 tab 04/05/20 rosuvastatin [Crestor] 20 mg PO DAILY #30 tab 04/05/20 spironolactone 25 mg PO DAILY #30 tab 04/05/20 Lab/Diagnostics: Laboratory Results - last 24 hr 04/04/20 04/04/20 04/04/20 17:32 17:35 17:50 WBC RBC Hgb Hct MCV MCH MCHC RDW Coeff of Alan Plt Count Immature Gran % (Auto) Neut % (Auto) Lymph % (Auto) Sequoyah % (Auto) Eos % (Auto) Baso % (Auto) Neut # (Auto) Lymph # (Auto) Sequoyah # (Auto) Eos # (Auto) Baso # (Auto) Immature Gran # (Auto) Sodium 136.6 Potassium 3.87 Chloride 100.0 Carbon Dioxide 27.4 Anion Gap 13.07 BUN 13.2 Creatinine 1.25 H Estimated GFR (MDRD) 61.00 BUN/Creatinine Ratio 10.56 Glucose 234.0 H Calcium 9.69 Total Bilirubin 0.87 AST 32.8 ALT 14.9 Alkaline Phosphatase 89.7 NT-Pro-B Natriuret Pep 783.000 H Total Protein 7.59 Albumin 4.31 Globulin 3.28 Albumin/Globulin Ratio 1.31 TSH Free T4 1.48 Urine Opiates Screen Positive H Ur Oxycodone Screen Negative Urine Methadone Screen Negative Ur Propoxyphene Screen Negative Ur Barbiturates Screen Negative U Tricyclic Antidepress Negative Ur Phencyclidine Scrn Negative Ur Amphetamine Screen Negative U Methamphetamines Scrn Negative U Benzodiazepines Scrn Negative Urine Cocaine Screen Negative U Cannabinoids Screen Negative 04/04/20 04/05/20 04/05/20 17:50 05:16 05:16 WBC 8.71 RBC 4.76 Hgb 13.9 L Hct 40.3 L MCV 84.7 MCH 29.2 MCHC 34.5 RDW Coeff of Alan 14.4 Plt Count 205 Immature Gran % (Auto) 0.2 Neut % (Auto) 57.4 Lymph % (Auto) 30.2 Sequoyah % (Auto) 8.4 Eos % (Auto) 3.3 Baso % (Auto) 0.5 Neut # (Auto) 5.0 Lymph # (Auto) 2.6 Sequoyah # (Auto) 0.7 Eos # (Auto) 0.3 Baso # (Auto) 0.0 Immature Gran # (Auto) 0.0 Sodium 137.7 Potassium 3.53 Chloride 102.1 Carbon Dioxide 28.9 Anion Gap 10.23 BUN 13.9 Creatinine 1.20 H Estimated GFR (MDRD) 64.00 BUN/Creatinine Ratio 11.58 Glucose 109.8 H D Calcium 9.63 Total Bilirubin 0.97 AST 26.8 ALT 13.0 Alkaline Phosphatase 69.9 NT-Pro-B Natriuret Pep Total Protein 7.09 Albumin 3.98 Globulin 3.11 Albumin/Globulin Ratio 1.27 TSH 1.280 Free T4 Urine Opiates Screen Ur Oxycodone Screen Urine Methadone Screen Ur Propoxyphene Screen Ur Barbiturates Screen U Tricyclic Antidepress Ur Phencyclidine Scrn Ur Amphetamine Screen U Methamphetamines Scrn U Benzodiazepines Scrn Urine Cocaine Screen U Cannabinoids Screen CT HEad: IMPRESSION: 1. No acute intracranial abnormality. 2. 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 3. Mild chronic small vessel ischemic changes and atrophy. Renal artery US: No evidence of JUANCARLOS Kidney US: No structural ABNL Pending: Renin/aldosoterone metanephrines Uncollected: Urinalysis microalb/creatine ratio Education Provided to Patient and Family: 1. HTN: - Dash DIet - Lisinopril 40mg QHS - Metoprolol succinate 100mg QHS - Norvasc 10mg QHS R/B/A to meds d/w patient, SE reviewed, handout offered regarding medications listed. - Aldcatone 25mg q am - Clonidine 0.2mg TID. R/B/A to meds d/w patient, SE reviewed, handout offered regarding medications listed. - Stop clonidine patch - Get BP cuff and check BP 2x daily. Document and bring to next OV. - Goal BP <140/90 2. Diabetes: - Keep sugar log 4x daily 8, 12, 5, bedtime. Document. - Increase basaglar to 66 units BID - REsume humalog 20 units TID - Bring log to next OV - Goal A1C <7% 3. Mixed HLD: - Needs high potency statin. - Consider 81mg ASA for primary prevention. - Stop lovastatin and start crestor 20mg daily. - Avoid tobacco 3, Obesity: - Weight loss encouraged. Follow-ups: 1. Keep f/u with cardiology on monday 04/09 2. Appt with ADRIAN Sierra 04/11 1 pm 3. F/U with renin jacob levels 4. F/U with metanephrines. Discharge Disposition: Home Hospital Course: 49 yo CM patient of ADRIAN Sierra presented to ED today after visit was scheduled with ADRIAN Rodriguez. [facility], bu tappt was cancelled at 10:12. Per patient, he was directed to the ED due marked ly elevated BP. At 1730 today, Dr. Harris from ED called me to let me know that the patient BP was markedly elevated. While on the phone, I checked his last OV from 01/04/20 DM f/u, BG noted 160-200, 3 week previously met with cardiology w/ med changes and had apt 1 week in the future. I did not find scanned documents from the cardiology evaluation. Homeless, living out of the truck. Last A1C 11.10, poor diet, living in vehicle, uncontrolled HTN: recommended salt reduction. Labs were ordered. Labs from 04/02/20 WBC 7.53, hgb 14.1, plt 228. CMP 138.5 sodium, k+ 3.83, cr 1.29, glucose 158.3, a1c 9.34. Trigly 294.1, chol 204.7, ldl 114. AST/ALT normal at 21.9 and 14.6. Stress echo 04/01/[address] Glaser. I was called by ED 1739 04/04/20 and informed patient was in ED with high blood pressure. I talked to Steven. Patient arrived in ED around 11. They noted chronic history of HTN and DM found while in f/u apt in clinic. Had been taking BP meds. No Chest pain, no PACKER. BP from 10:46 through present included 239/122, 240/130, 255/119, 227/108, 223/111, 201/99, 200/98 199/96, 190/102, 209/99, 188/94, 187/95, 182/94, 186/88, 175/96, 186/94 and then 218/106. Afebrile, Pulse 74, rr 18. I reviewed medications from the last note from ADRIAN sierra and med list is not clear. It appears he is on Lovastatin 40mg daily, Lisinopril 40mg daily, hydroxyzine 25mg up to QID, Clonidine patch 0.3/24 hour, metoprolol tartrate 100 daily, norco 10 TID, HCTZ 25, basaglar 64 untis, lispro 20 units TID. Is on chlorthalidone 50mg daily. He should not be on #2 thiazides. I reviewed the note from podiatry from 02/16/20 remy and peripheral neuropathy. It appears in the ED he got lorazepam 1mg, labetaol 20mg IVP at 1109, then 10mg at 1341. He got enalaprilat 1.25mg 1227, hydralazine 10mg at 1457. Then clonidine 0.1mg at 1733 at my direction as I was concerned that the patient was having rebound HTN due to missing his clonidine patch. As of the discussion with me at 173, no labs had been done on patient today. I requested CBC/CMP/Utox at a minimum. No eye c/o no vision changes, no PACKER, no Chest pain, no urinary changes, no MSK changes. He presented with HTN urgency without obvious emergency/end organ symptoms. I discussed with ED provider that labs for today would be a good idea. I would like to know the creatinine today to evaluate kidney function. ER provider noted that he was given hydralazine, labetalol, these did not help. He was added on nicardipine drip and BP had dropped some. I noted concern for stimulation of the sympathetic nervous system and for rebound HTN due to lack of clonidine. He has not had any renal imaging in our system, I do not have the recent cardiology recommendations. He is not on aldosterone antagonist. Based on presentation, I am concerned that the patient has not been compliant with his clonidine. I would like to give him 0.2mg clonidine BID, would like to start Norvasc 10mg daily, continue chlorthalidone 50mg, Lisinopril 40mg. Would like to get Renal artery US and kidney US tomorrow. I need to get cardiology documentation. I noted to Dr. Harris that I needed additional information about this patient before agreeing to admit as no workup had been done other than meds for his high BP. Received call back at 1905 after request for additional information and I agreed to admit to observation. CBC showed wbc 10.05, hgb 14.3, plt 195. CMP Cr stable at 1.25, GFR 61 suggesting stage 2 disease. K+ is stable at 3.87 and sodium 136.6. BUN stable 13.2. Glucose 234.0. A1C done 04/02 was 9.34. BNP was 783. TSH normal 1.280, Free T4 1.48. microalbumin was 211 on 10/05/19. Utox was + for opiates. 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 Mild chornic small vessel ischemic changes. Called nursing and his BP was 205/100 right and 220/120 on left as of 21:20. Reviewed care with Elle landa. The patient is by definition resistant HTN as he is on multiple meds (>3) with persistent HTN. Some patients have refractory HTN (>5 meds with chlorhtalidone and aldactone) under care of HTN specialist. No proximal muscle weakness, purple striae, cushingoid features, large hands/feet, virilization, frontal bossing (e/o GH or Cortisol). Initial w/u needs to include electrolytes, UA, calcium, tsh, plasma jacob and plasma renin activity, plasma fractionated metanephrines. I had DR. Harris order most of this while in the ED. I have added renin activity, aldosterone. Metanephrines, urine microalb/creatinine ratio. US of kidneys/doppler in am. Hospital Day 2 04/05/20. 49 yr old CM history of chronic resistant HTN, IDDM, HLD, homelessness, anxiety, BMI 36.5, hospital day 2 with admission for hypertension urgency/resistant HTN. The patient was changed from clonidine 0.3mg/24hr patch to 0.2mg clonidine PO BID, Lisinopril 40mg daily QHS, Norvasc 10mg, Chlorthalidone 50mg, metoprolol succinate 100mg, and spironolactone 25mg daily. R/B/A to medications were discussed with patient, SE were discussed with patient last night. He had no symptoms. Overnight he has had 3 voids. No BM. BP were 218/106 at 16:11 and 20:49. 205/106 at 21:32. 187/94 at 23:41 when I left last night, 153/89 this am at 0200 and 157/86 at 0549. HR 72 and 71 at 0200 and 0549. His BP mean has dropped from 139 to 109. This is a <25% drop, which is reasonable for an hours to days approach to BP lowering. RR stable at 16-18 this am max of 20. Remains afebrile. O2 97-100 on RA. Telemetry overnight NSR with 1st degree AVB noted as seen on EKG. No bundle block noted, no fascicle block noted. Labs this am CBC: normal white count 8.71, hgb 13.9 and essentially normal. Plt normal at 205. CMP Creatinne has dropped from 1.25 to 1.20. Sodium normal 137.7, K+ normal 3.53, cl nnormal 102.1, Glucose looked great at 109.8. Send out labs are not yet back. As noted, I suspected some withdrawal from either a BB or Clonidine as cause for his rebound markedly elevated BP. Nursing notes reviewed. Rested well through night. Was given lovenox. He had #2 new BP meds added by me as noted above Norvasc 10 (risks of peripheral edema d/w patient) and aldactone (risks of hypotension/gynecomastia specifically mentioned in addition to others). He is currently NPO for his am US of kidneys and renal artery US. CXR is pending this am as well. I have increased his basaglar (lantus in hospital) to 66 units BID from 64 units. I have stopped the 20units of Humalog TID and changed him to q 4 hours accucheck and moderate dose sliding scale. He is not on metformin. He is not on other oral glucose lowering medications. Patient feels unchanged this am. As per nursing obs narratives. He rested well, felt fine and had no c/o. Slept well through the night. He still has no c/o this am. Awaiting imaging. I would like to monitor him through this evening. If his BP remains stable, will plan on d/c either this pm or tomorrow 04/06/20 am. Rounds started 06:45-07:15. Patient seen room 115. D/W overnight nurses, reviewed tele, reviewed labs, awaited imaging. US of kidneys returned WNL. US doppler negative, CXR negative. Patient was seen by me again at 1545 and he expressed desire to leave due to his dog. We discussed his medications, discussed his imaging, discussed his diet. >30 minutes today spent on rounding and management of patient for this discharge today. Readings today include 153/89, 157/86, 152/74, 160/64, 158/74, 196/96, 176/92. He noted he has not felt this good in a long time. He was a little more anxious this evening as his son has his dog and he feels he needs to go. He requested d/c. Still asymptomatic. NO concerns from patient at this time. Questions answered to the satisfaction of the patient. DAY OF DISCHARGE EXAM: Vital Signs - 24 hr 04/04/20 20:21 04/04/20 20:49 04/04/20 21:32 Temperature 97.8 F 97.8 F 97.8 F Pulse Rate 93 H 93 H 93 H Respiratory Rate 20 20 20 Blood Pressure 218/106 H 205/106 H O2 Sat by Pulse Oximetry 97 97 97 04/04/20 23:41 04/05/20 02:00 04/05/20 05:49 Temperature 98.0 F Pulse Rate 72 71 Respiratory Rate 18 16 Blood Pressure 187/94 H 153/89 H 157/86 H O2 Sat by Pulse Oximetry 99 100 04/05/20 07:00 04/05/20 08:00 04/05/20 09:49 Temperature 97.9 F Pulse Rate 77 Respiratory Rate 19 19 Blood Pressure 152/74 H 160/64 H 158/74 H O2 Sat by Pulse Oximetry 100 04/05/20 12:04 04/05/20 14:00 Temperature 98.8 F Pulse Rate 81 75 Respiratory Rate 16 18 Blood Pressure 196/96 H 176/92 H O2 Sat by Pulse Oximetry 99 99 REVIEW OF SYMPTOMS: (Positives bolded) DECLINED BELOW General: weight loss, fever, chills, night sweats, fatigue, appetite loss HEENT: blurry vision, eye pain, eye discharge, dry eyes, decreased vision, sore throat tinnitus, bloody nose, hearin gloss, sinus pain/pressure, ear pain/pressure. Respiratory: shortness of breath, cough, hemoptysis, wheezing, pleurisy, Cardiovascular: chest pain, PND, palpitation, edema, orthopnea, syncope, swelling of extremities Gastro: Nausea, vomiting, diarrhea, hematemesis, abdominal pain, constipation Genito: hematuria, dysuria, glycosuria, hesitancy, frequency, incontinence Musckelo: Arthralgia, myalgia, muscle weakness, joint swelling, NSAID use Skin: rash, pruritis, sores, nail changes, skin thickening, change in wart/mole, itching, rash, new lesions, pruritus, nail changes Neuro: Migraine, numbness, ataxia, tremor, vertigo, weakness, memory loss, Irritability, dizziness Endocrine: excessive thirst, polyuria, cold intolerance, heat intolerance, goiter Psychiatric: depression, anxiety, anti-depressants, alcohol abuse, drug abuse, insomnia, change in sleep pattern and mood changes Heme/lymph: easy bruising, bleeding gums, blood clots, swollen glands, lymphedema, Allergic/immune: allergic rhinitis, hay fever, asthma, hives Constitutional: Appearance-No acute distress, Consistent with stated age. Orientation- Oriented x 3, alert Build and Nutrition-[obese bmi 36.4] General- Patient is pleasant and cooperative with the interview and exam. Integumentary: General-No rashes, ulcers or lesions. Palpation- Normal skin moisture/turgor. Skin is warm to touch, appropriate. Capillary refill is normal bilateral Upper and lower extremity. Head/Neck: Head- normocephalic and atraumatic. Neck- without visible/palpable lumps or pulsations. Palpation- No bony tenderness about head/neck along frontal, occipital, temporal, parietal, mastoid, jawline, zygoma, orbit or any other location. NO temporal artery tenderness. No TMJ tenderness. Neck Supple. Thyroid-No thyromegaly, no nodules Eye: Bilaterally PERRLA, EOMI. No discharge. Upper and lower eyelids are normal. Sclera/conjunctiva normal without discharge. Cornea is normal and clear. Lens is normal. Eyeball appears normal. No ciliary flushing, no conjunctival injection. ENMT: Nose and sinus- No sinus tenderness along frontal/maxillary region. External appearance normal and midline. Nares- bilateral quiet airflow, no discharge. Nasal mucosa- No bleeding noted and no ulcerations observed. Billings, moist. Turbinates non boggy. Lips- normal color, moist without cracks/lesions Oral Cavity/Palate- hard/soft palate intact without lesions, oral mucosa pink and moist. Tongue normal midline. Oropharynx- no pharyngeal erythema, Uvula midline. No post nasal drip. No exudate. Salivary glands- Non tender to palpation CHEST/LUNG: Inspection- symmetric chest wall no pectus deformity. Normal effort, no distress, no use of accessory muscles. Palpation- nontender sternum, ribline. No abnormal pulsations. Auscultation- Breath sounds normal throughout all lung gunter. Normal tracheal sounds, Normal bronchial sounds overlying sternum, Bronchovessicular sounds normal between scapulae posteriorly, Normal vessicular breath sounds heard throughout periphery. Lungs are clear today. Adventitious sounds- No wheezes, rales, rhonchi. CARDIOVASCULAR: Carotid artery- normal, no bruits or abnormal pulsations. Jugular vein- no pulsations. Palpation/Percussion- Normal PMI, no palpable thrill Auscultation- Regular rate and rhythm. No murmur noted in sitting, supine positions. Extremities- no digital clubbing, cyanosis, edema, increased warmth. ABDOMEN: Inspection- normal and no visible pulsations. Normal contour. Auscultation- Bowel sounds normal, no abdominal bruits. Palpation/Percussion- soft, non-tender, no rebound tenderness, no rigidity (guarding), no jar tenderness, no masses. Liver-no hepatomegaly, Spleen no splenomegaly, Hernias- none. Rectal not examined. Peripheral Vascular: Upper extremity Left- Normal temperature with pink nailbeds and no ulcerations. Upper extremity Right- Normal temperature with pink nailbeds and no ulcerations. Lower extremity- Normal temperature with pink nailbeds and no ulcerations. DP pulses 2+ bilaterally. Pedal hair intact. Normal capillary refill. Edema- No edema. Musculoskeletal: Generalized-No generalized swelling or edema of extremities, no digital clubbing or cyanosis, neurovascularly intact all four extremities. Neurological: General- Moves all 4 extremities symmetrically. Symmetrical face and body posture. Cranial nerves- individually evaluated II-XII and intact. PERRLA, Normal EOMI, visual/special senses appear intact, Face is symmetrical and normal sensation/movement, normal tongue, normal strength/posture of neck musculature. Reflexes- intact with DTR 2+ patellar, Achilles, Neuropsych: Oriented- Person, place, time. (AAOx3), Mood/affect- normal and congruent. Able to articulate well. Speech-Normal speech, normal rate, normal tone, normal use of language, volume and coherence. Thought content- normal with ability to perform basic computations and apply abstract thought/reason. Associations- intact, no SI/HI, no hallucinations, delusions, obsessions. Judgment/insight- Appropriate. Memory-Recall intact, remote and recent memory intact. Knowledge- Age appropriate fund of knowledge, concentration and attention span normal. Lymphatic: Head/Neck- normal size and non tender to palpation. Axillary- normal size and non tender to palpation. Femoral and Inguinal- normal size and non tender to palpation. Plan: 1. D/C patient home 2. F/U with cardiology monday 04/09 3. F/U with CERTIFIED HYPERBARIC TECHNICIAN Crumble on 04/11 4. Consider f/u with HTN Specialist 5. >30 MINUTES SPENT ON DISCHARGE TODAY.
[2020-04-06] MEDS ORDERED: CARDENE 20 MG/200 ML NACL 20 MG/200 ML BAG IV SCH (10:00)
[2020-04-12 02:10] LABS: METANEPHRINE, PL 44.6 pg/mL (0.0-88.0); NORMETANEPHRINE, PL 64.8 pg/mL (0.0-136.8)
[2020-04-14 05:10] LABS: ALDOSTERONE 1.8 ng/dL (0.0-30.0); RENIN ACTIVITY 0.233 ng/mL/hr (0.167-5.380)
== END 2020-04-05 18:14 | disposition home or self-care (01) ==
LOC: ED 10:45 → MEDSURG B 10:45 → MEDSURG A 04-05 15:38
PROVIDERS: ADMIT Family Medicine; ATTEND Family Medicine
DX: I10 Essential (primary) hypertension